=== PATIENT | female | born 1995 | race Caucasian/White ===

== ENCOUNTER 2018-12-05 12:03 | Inpatient (IN) | payer MEDICAID, OTHER ==
[~2018-12-05] VITALS: Ht 154.9 cm; Wt 68.5 kg
[2018-12-05] MEDS ORDERED: CEFTRIAXONE 1 GM INJ IM ONE (14:30)
[2018-12-05] MEDS ORDERED: LIDOCAINE 1% (MPF) 5 ML VIAL INJ ONE (14:30)
[2018-12-05] MEDS ORDERED: SOD CHLORIDE 0.9% 1,000 ML IV STA (14:31)
[2018-12-05] MEDS ORDERED: CEFTRIAXONE 1 GM/50 ML (PMX) 50 ML IVPB ONE (15:00)
--- NOTE | 2018-12-05 17:22 | ERD ---
ER Documentation Chief Complaint Chief Complaint PAINFUL URINATION; BACK PAIN - HPI This is a 23-year-old female with no significant past medical history, currently at approximately 16 weeks gestational age who is presenting with several days of a burning pain with urination, right-sided flank pain and nausea. She has felt feverish at home as well with occasional chills. The patient is concerned that she could have urinary tract infection. She has suprapubic tenderness as well. She does not endorse any changes to bowel movements. She has not had any black or bloody or tarry stools. She denies constipation or diarrhea. She does not endorse any exacerbating or alleviating factors. The patient has had no headache or vision changes. The patient does not endorse neck or back pain. The patient denies lightheadedness or dizziness. The patient has had no chest pain or trouble breathing. The patient has had no focal deficits. The patient has had no weakness or numbness or tingling to the face or extremities. ROS All systems reviewed and are negative except as per history of present illness. Medications Home Meds No Active Prescriptions or Reported Meds Allergies Allergies: Coded Allergies: No Known Allergy (Unverified , 12/05/18) PMhx/Soc Medical and Surgical Hx: pt denies Medical Hx, pt denies Surgical Hx History of Surgery: No Hx Neurological Disorder: No Hx Respiratory Disorders: No Hx Cardiac Disorders: No Hx Psychiatric Problems: No Hx Miscellaneous Medical Probl: No Hx Alcohol Use: No Hx Substance Use: No Hx Tobacco Use: No Smoking Status: Never smoker FmHx Family History: No diabetes Physical Exam Vitals Vital Signs Date Temp Pulse Resp B/P (MAP) Pulse Ox O2 O2 Flow FiO2 Time Delivery Rate 12/05/18 112 20 106/76 100 Room Air 17:00 (86) 12/05/18 117 15 116/77 100 Room Air 15:49 (90) 12/05/18 100.0 123 24 119/79 99 12:14 (92) Physical Exam Const: No apparent distress, well-developed, well-nourished Head: Normocephalic, Atraumatic Eyes: Normal Conjunctiva. Extraocular movements intact. Pupils equal, round and reactive to light ENT: Normal External Ears, Nose and Mouth. Neck: Full range of motion. No meningismus. Resp: Clear to auscultation bilaterally, No wheezes, rales or rhonchi Cardio: Regular rhythm. Tachycardia. No murmurs, rubs or gallops Abd: Soft. Gravid uterus 4-5 cm below the umbilicus. Suprapubic tenderness. Normal bowel sounds Skin: No petechiae or rashes Back: No midline tenderness. No CVA tenderness Ext: No cyanosis, or edema Neur: Awake and alert, oriented 4. Cranial nerves intact. No facial droop. Normal strength, sensation and coordination. Psych: Normal Mood and Affect Result Diagram: 12/05/18 1442 12/05/18 1442 Results 24 hrs Laboratory Tests Test 12/05/18 14:42 12/05/18 14:47 White Blood Count 14.5 10^3/ul Red Blood Count 4.60 10^6/ul Hemoglobin 13.3 g/dl Hematocrit 38.8 % Mean Corpuscular Volume 84.3 fl Mean Corpuscular Hemoglobin 28.9 pg Mean Corpuscular Hemoglobin Concent 34.3 g/dl Red Cell Distribution Width 13.5 % Platelet Count 158 10^3/UL Mean Platelet Volume 11.7 fl Immature Granulocytes % 0.600 % Neutrophils % 88.9 % Lymphocytes % 4.0 % Monocytes % 6.3 % Eosinophils % 0.0 % Basophils % 0.2 % Nucleated Red Blood Cells % 0.0 /100WBC Immature Granulocytes # 0.080 10^3/ul Neutrophils # 12.9 10^3/ul Lymphocytes # 0.6 10^3/ul Monocytes # 0.9 10^3/ul Eosinophils # 0.0 10^3/ul Basophils # 0.0 10^3/ul Nucleated Red Blood Cells # 0.0 10^3/ul Urine Color YELLOW Urine Clarity CLOUDY Urine pH 6.0 Urine Specific [place] 1.012 Urine Ketones 2+ mg/dL Urine Nitrite POSITIVE mg/dL Urine Bilirubin NEGATIVE mg/dL Urine Urobilinogen NEGATIVE mg/dL Urine Leukocyte Esterase 3+ Gracy/ul Urine Microscopic RBC 5 /HPF Urine Microscopic WBC 73 /HPF Urine Squamous Epithelial Cells MODERATE /HPF Urine Bacteria FEW /HPF Urine Mucus MODERATE /HPF Urine Hemoglobin 1+ mg/dL Urine Glucose NEGATIVE mg/dL Urine Total Protein 1+ mg/dl Sodium Level 136 mmol/L Potassium Level 3.5 mmol/L Chloride Level 97 mmol/L Carbon Dioxide Level 22 mmol/L Anion Gap 17 Blood Urea Nitrogen 6 mg/dl Creatinine 0.54 mg/dl Est Glomerular Filtrat Rate mL/min > 60 mL/min Glucose Level 101 mg/dl Lactic Acid Level 1.8 mmol/L Calcium Level 9.7 mg/dl Total Bilirubin 0.4 mg/dl Direct Bilirubin 0.00 mg/dl Indirect Bilirubin 0.4 mg/dl Aspartate Amino Transf (AST/SGOT) 20 IU/L Alanine Aminotransferase (ALT/SGPT) 19 IU/L Alkaline Phosphatase 134 IU/L Total Protein 7.8 g/dl Albumin 4.4 g/dl Globulin 3.40 g/dl Albumin/Globulin Ratio 1.29 POC Venous Lactate 1.9 mmol/L Current Medications Medications Dose Sig/Clau Start Time Status Last (Trade) Ordered Route PRN Stop Time Admin Dose Reason Admin Ceftriaxone 1 gm ONCE ONCE 12/05/18 DC Sodium IM 14:30 (Rocephin) 12/05/18 14:32 Lidocaine 5 ml ONCE ONCE 12/05/18 DC (Xylocaine INJ 14:30 1% (Mpf)) 12/05/18 14:32 Sodium 1,000 ml @ Q1H STAT 12/05/18 DC 12/05/18 Chloride 1,000 mls/hr IV 14:31 14:57 12/05/18 15:30 Ceftriaxone 50 ml @ ONCE ONCE 12/05/18 DC 12/05/18 Sodium 100 mls/hr IVPB 15:00 15:09 12/05/18 15:29 Procedures/MDM MDM The patient's presentation warrants further investigation. Previous medical records, if available, were reviewed. LABS The patient's laboratory testing was obtained and reviewed. No emergent treatment was required unless described below. CBC: Leukocytosis with left shift, concerning for possible infectious etiology. No anemia or thrombocytopenia. CMP: No E/o severe acidosis or alkalosis or renal failure or diabetic ketoacidosis. Elevated alkaline phosphatase, likely reactive, otherwise no evidence of liver disease. Lactate: No E/o severe sepsis Urine: E/o acute infection with hematuria IMAGING Imaging and Radiology interpretation reviewed. Pelvic US FINDINGS: The cervix measures 2.9 cm in length. Gestation: Single live intrauterine gestation. Cardiac activity: 173 beats per minute. Presentation: Vertex. Placenta: Location: Anterior. Appearance: No previa or abruption. MVP = 3.7 cm Measurements: BPD = 3.6 cm, 17 weeks and 0 days HC = 13 cm, 16 weeks and 4 days AC = 10.9 cm, 16 weeks and 5 days FL = 2.2 cm, 16 weeks and 4 days Gestational Age: AUA estimated gestational age: 16 weeks 5 days LMP estimated gestational age: 16 weeks 3 days AUA estimated date of delivery: 05/17/19 The EFW = 164 g, 58.9%ile based on LMP age. The right ovary was not visualized. The left ovary is normal in size and echogenicity and measures 3.2 x 2.0 x 2.6 cm. IMPRESSION: Single live intrauterine gestation of 16 weeks 5 days by ultrasound criteria. Electronically viewed and signed by .Jose Romero MD, MD on 12/05/2018 15:43 TREATMENT/DISPOSITION The patient presents with findings concerning for a urinary tract infection. She does have right-sided flank pain as well, concerning for possible pyelonephritis. The patient is currently at 16 weeks and 5 days gestational age. This infection makes it a high risk , and I feel that the patient requires admission for IV antibiotic administration. The patient was given a dose of Rocephin in the emergency department. The patient has mild microscopic hematuria, but I have decreased suspicion for nephrolithiasis. The patient does not have any evidence of peritonitis. The patient does not have clinical symptoms concerning for mesenteric ischemia or ischemic colitis. The patient does not have right upper quadrant tenderness, and I have low suspicion for gallstones, cholecystitis or biliary colic. The patient does not have any epigastric pain. I have low suspicion for gastritis, PUD or GERD. The patient does not have left upper quadrant tenderness. I have low suspicion for pancreatitis. The patient does not have any right lower quadrant tenderness, or periumbilical tenderness. I have low suspicion for appendicitis. The patient does not have any left lower quadrant tenderness, and I have low suspicion for diverticulosis or diverticulitis. The patient does not have any palpable pulsatile mass or severe abdominal pain radiating to the back. I have low suspicion for aortic aneurysm, dissection or rupture. The patient was tachycardic with a leukocytosis. I was concerned about the possibility of sepsis. A septic workup was completed. SEPSIS NOTE SIRS Criteria: Tachycardia, leukocytosis Infectious source: Pyelonephritis End organ damage indicated by: None SEPSIS MANAGEMENT Time to recognize sepsis: Upon arrival. Time to recognize severe sepsis: No severe sepsis at this time. Time to recognize septic shock: No septic shock at this time. 3 HOUR BUNDLE Blood cultures x 2 before abx: Yes 30 ml/kg NS bolus the patient is not in severe sepsis. She was given a liter of normal saline, but I do not feel the patient requires a full 30 mL/kg bolus of IV fluids. Initial lactate 1.8 Repeat lactate 1.9 SEPTIC SHOCK ASSESSMENT: NO lactic acid > 4.0 NO persistent hypotension CRITICAL CARE Critical care time 35 minutes Emergent fluid management while maintaining close respiratory support. Provision of immediate and broad-spectrum antibiotic therapy. Simultaneous assessment for possible sources in order to direct targeted therapy. Consideration for invasive and chemical support to prevent cardiopulmonary collapse. Critical care time is independent of procedures performed. ADMISSION At this time, I feel that the patient requires admission for further evaluation and management. The patient will be admitted to panel in accordance with the patient's insurance. The patient was accepted by Dr. Mueller at 4:46 PM on December 05, 2018. I spoke with the oncall outside operator, Dr. Nguyen, who will see the patient in the hospital. Disclaimer: Inadvertent spelling and grammatical errors are likely due to EHR/dictation software use and do not reflect on the overall quality of patient care. Note that the electronic time recorded on this note does not necessarily reflect the actual time of the patient encounter. Departure Diagnosis: Primary Impression: Pyelonephritis Additional Impressions: Urinary tract infection Urinary tract infection type: acute cystitis Hematuria presence: with hematuria Qualified Codes: N30.01 - Acute cystitis with hematuria Right flank pain Second trimester Leukocytosis Leukocytosis type: unspecified Qualified Codes: D72.829 - Elevated white blood cell count, unspecified Sepsis Sepsis type: sepsis due to unspecified organism Qualified Codes: A41.9 - Sepsis, unspecified organism Condition: Serious ANTONIO LEWIS MD Dec 05, 2018 17:22
[2018-12-05] MEDS ORDERED: ACETAMINOPHEN 325 MG TAB PO PRN (17:30)
[2018-12-05] MEDS ORDERED: ONDANSETRON 4 MG INJ IV PRN (17:30)
--- NOTE | 2018-12-05 18:45 | HP ---
Date/Time of Note Date/Time of Note DATE: 12/05/18 TIME: 18:42 Assessment/Plan VTE Prophylaxis Pharmacological prophylaxis: NA/contraindicated Pharm contraindication: low risk/ambulating Lines/Catheters IV Catheter Type (from Nrs): Saline Lock Assessment/Plan Hospital Course 1. Sepsis secondary to pyelonephritis Rocephin IV IV fluids Follow-up on cultures 2. Intrauterine gestation Ultrasound shows an intact at 16 weeks and 5 days OB has been consulted Prophylaxis: Ambulation Result Diagram: 12/05/18 1442 12/05/18 1442 Results 24hrs Laboratory Tests Test 12/05/18 14:42 12/05/18 14:47 White Blood Count 14.5 H Red Blood Count 4.60 Hemoglobin 13.3 Hematocrit 38.8 Mean Corpuscular Volume 84.3 Mean Corpuscular Hemoglobin 28.9 L Mean Corpuscular Hemoglobin Concent 34.3 Red Cell Distribution Width 13.5 Platelet Count 158 Mean Platelet Volume 11.7 H Immature Granulocytes % 0.600 H Neutrophils % 88.9 H Lymphocytes % 4.0 L Monocytes % 6.3 Eosinophils % 0.0 Basophils % 0.2 Nucleated Red Blood Cells % 0.0 Immature Granulocytes # 0.080 H Neutrophils # 12.9 H Lymphocytes # 0.6 L Monocytes # 0.9 Eosinophils # 0.0 Basophils # 0.0 Nucleated Red Blood Cells # 0.0 Urine Color YELLOW Urine Clarity CLOUDY A Urine pH 6.0 Urine Specific [place] 1.012 Urine Ketones 2+ H Urine Nitrite POSITIVE A Urine Bilirubin NEGATIVE Urine Urobilinogen NEGATIVE Urine Leukocyte Esterase 3+ H Urine Microscopic RBC 5 Urine Microscopic WBC 73 H Urine Squamous Epithelial Cells MODERATE Urine Bacteria FEW A Urine Mucus MODERATE Urine Hemoglobin 1+ H Urine Glucose NEGATIVE Urine Total Protein 1+ H Sodium Level 136 Potassium Level 3.5 Chloride Level 97 Carbon Dioxide Level 22 Anion Gap 17 H Blood Urea Nitrogen 6 L Creatinine 0.54 Est Glomerular Filtrat Rate mL/min > 60 Glucose Level 101 Lactic Acid Level 1.8 Calcium Level 9.7 Total Bilirubin 0.4 Direct Bilirubin 0.00 Indirect Bilirubin 0.4 Aspartate Amino Transf (AST/SGOT) 20 Alanine Aminotransferase (ALT/SGPT) 19 Alkaline Phosphatase 134 H Total Protein 7.8 Albumin 4.4 Globulin 3.40 H Albumin/Globulin Ratio 1.29 POC Venous Lactate 1.9 HPI/ROS Admit Date/Time Admit Date/Time December 05, 2018 Hx of Present Illness Patient is a 23-year-old female with no prior medical history, patient is at 16 weeks, patient presents with 3 days of fever, dysuria and back pain on the lower right side. Patient has no history of UTI. In the ER patient was found to be septic with a positive UA. Patient has no other complaints this time. ROS Constitutional: chills, febrile Eyes: no complaints ENT: no complaints Respiratory: no complaints Cardiovascular: no complaints Gastrointestinal: no complaints Genitourinary: dysuria Musculoskeletal: back pain Skin: no complaints Neurologic: no complaints Endocrine: no complaints Lymphatic: no complaints Psychological: no complaints, nl mood/affect Immunologic: no complaints PMH/Family/Social Past Medical History Medical History: no pertinent history Medications Current Medications Ondansetron HCl (Zofran Inj) 4 mg BRIDGE ORDER PRN IV NAUSEA/VOMITING; Start 12/05/18 at 17:30; Stop 12/06/18 at 17:29 Acetaminophen (Tylenol Tab) 650 mg ER BRIDGE PRN PO .MILD PAIN 1-3 OR TEMP Last administered on 12/05/18at 18:36; Admin Dose 650 MG; Start 12/05/18 at 17:30; Stop 12/06/18 at 17:29 Coded Allergies: No Known Allergy (Unverified , 12/05/18) Past Surgical History Past Surgical Hx: no surgical history Family History Significant Family History: no pertinent family hx Social History Alcohol Use: rarely Smoking Status: Never smoker Drug Use: none Exam/Review of Systems Vital Signs Vitals Vital Signs Date Temp Pulse Resp B/P (MAP) Pulse Ox O2 O2 Flow FiO2 Time Delivery Rate 12/05/18 102.9 18:36 12/05/18 133 24 116/76 97 Room Air 18:32 (89) Exam Constitutional: alert, oriented Respiratory: clear to auscultation Cardiovascular: regular rate and rhythm Gastrointestinal: soft; No distended Musculoskeletal: nl extremities to inspection ALEXANDRIA BOYD Dec 05, 2018 18:45
[2018-12-05] MEDS ORDERED: NACL 0.9% 3 ML SYG IV SCH (19:00)
[2018-12-05] MEDS ORDERED: HYDROCODONE/APAP (5/325) TAB PO PRN (19:00)
[2018-12-05 19:30] VITALS: BP 98/51; PULSE 117; RESP 20
[2018-12-05] MEDS: morphine 2 MG INJ IV PRN (19:36)
[2018-12-05] MEDS: SOD CHLORIDE 0.9% 1,000 ML IV SCH (19:36)
[2018-12-05 19:53] VITALS: Ht 154.9 cm; Wt 68.5 kg
[2018-12-05 20:00] VITALS: BP 96/51; PULSE 111; RESP 18
[2018-12-06 02:00] VITALS: BP 109/58; PULSE 111; RESP 18
[2018-12-06] MEDS: ACETAMINOPHEN 325 MG TAB PO PRN ×3 (02:08→23:15)
[2018-12-06] MEDS: morphine 2 MG INJ IV PRN (03:22)
--- NOTE | 2018-12-06 05:15 | NUR ---
Shift Summary Patient admitted last night for Pyelonephritis/. Admission completed. Activity ordered bedrest with BRP. Ambulates to bathroom with steady gait, stand-by assist. Dr. Blanco made aware of vital signs. Patient c/o right flank pain, medicated with Morphine and Tylenol as needed with relief. IVF infusing. SCD's placed. Hourly rounding done. Patient's safety maintained. All needs attended to promptly. Will endorse plan of care to oncoming nurse.
[2018-12-06] MEDS: SOD CHLORIDE 0.9% 1,000 ML IV SCH (05:28)
[2018-12-06 08:23] VITALS: BP 133/71; PULSE 78; RESP 17
--- NOTE | 2018-12-06 08:40 | NUR ---
FHT at 140's auscultated via doppler for 2 minutes, + accelerations noted.
[2018-12-06] MEDS: ONDANSETRON 4 MG INJ IV PRN (09:08)
[2018-12-06] MEDS ORDERED: POTASSIUM CHLORIDE (SR) 20 MEQ TAB PO STA (09:11)
[2018-12-06] MEDS: POTASSIUM CHLORIDE 40 MEQ in SOD CHLORIDE 0.9% 1,000 ML IV SCH ×2 (10:55→23:27)
--- NOTE | 2018-12-06 11:03 | PN ---
Date/Time of Note Date/Time of Note DATE: 12/06/18 TIME: 11:02 Assessment/Plan VTE Prophylaxis Risk score (from Nsg)>0 risk: 2 Pharmacological prophylaxis: NA/contraindicated Pharm contraindication: low risk/ambulating Lines/Catheters IV Catheter Type (from Nrsg): Peripheral IV Assessment/Plan Hospital Course 1. Sepsis secondary to pyelonephritis-improved Continue Rocephin IV IV fluids Follow-up on cultures 2. Intrauterine gestation Ultrasound shows an intact at 16 weeks and 5 days OB has been consulted 3. Hypokalemia Replete Prophylaxis: Ambulation DC planning: Anticipate DC home tomorrow Result Diagram: 12/06/18 0459 12/06/18 0459 Results 24hrs Laboratory Tests Test 12/05/18 14:42 12/05/18 14:47 12/06/18 04:59 White Blood Count 14.5 H 11.1 #H Red Blood Count 4.60 3.64 #L Hemoglobin 13.3 10.3 #L Hematocrit 38.8 31.0 #L Mean Corpuscular Volume 84.3 85.2 Mean Corpuscular Hemoglobin 28.9 L 28.3 L Mean Corpuscular Hemoglobin Concent 34.3 33.2 Red Cell Distribution Width 13.5 13.6 Platelet Count 158 130 L Mean Platelet Volume 11.7 H 12.2 H Immature Granulocytes % 0.600 H 0.500 H Neutrophils % 88.9 H 83.6 H Lymphocytes % 4.0 L 6.9 L Monocytes % 6.3 8.7 Eosinophils % 0.0 0.1 Basophils % 0.2 0.2 Nucleated Red Blood Cells % 0.0 0.0 Immature Granulocytes # 0.080 H 0.050 H Neutrophils # 12.9 H 9.3 H Lymphocytes # 0.6 L 0.8 Monocytes # 0.9 1.0 H Eosinophils # 0.0 0.0 Basophils # 0.0 0.0 Nucleated Red Blood Cells # 0.0 0.0 Urine Color YELLOW Urine Clarity CLOUDY A Urine pH 6.0 Urine Specific [place] 1.012 Urine Ketones 2+ H Urine Nitrite POSITIVE A Urine Bilirubin NEGATIVE Urine Urobilinogen NEGATIVE Urine Leukocyte Esterase 3+ H Urine Microscopic RBC 5 Urine Microscopic WBC 73 H Urine Squamous Epithelial Cells MODERATE Urine Bacteria FEW A Urine Mucus MODERATE Urine Hemoglobin 1+ H Urine Glucose NEGATIVE Urine Total Protein 1+ H Sodium Level 136 137 Potassium Level 3.5 3.1 L Chloride Level 97 106 Carbon Dioxide Level 22 18 L Anion Gap 17 H 13 Blood Urea Nitrogen 6 L 5 L Creatinine 0.54 0.49 Est Glomerular Filtrat Rate mL/min > 60 > 60 Glucose Level 101 78 Lactic Acid Level 1.8 Calcium Level 9.7 8.7 Total Bilirubin 0.4 Direct Bilirubin 0.00 Indirect Bilirubin 0.4 Aspartate Amino Transf (AST/SGOT) 20 Alanine Aminotransferase (ALT/SGPT) 19 Alkaline Phosphatase 134 H Total Protein 7.8 Albumin 4.4 Globulin 3.40 H Albumin/Globulin Ratio 1.29 POC Venous Lactate 1.9 Hemoglobin A1c 5.2 Phosphorus Level 3.6 Magnesium Level 2.1 Subjective 24 Hr Interval Summary Constitutional: no complaints Exam/Review of Systems Exam Vitals Vital Signs Date Temp Pulse Resp B/P (MAP) Pulse Ox O2 O2 Flow FiO2 Time Delivery Rate 12/06/18 98.9 78 17 133/71 96 08:23 (91) 12/05/18 Room Air 20:00 Intake and Output 12/05/18 12/05/18 12/06/18 1414:59 22:59 06:59 IntakeIntake Total 1000 ml 2680 ml BalanceBalance 1000 ml 2680 ml Constitutional: alert, oriented Respiratory: clear to auscultation Cardiovascular: regular rate and rhythm Gastrointestinal: soft; No distended Musculoskeletal: nl extremities to inspection Results Results 24hrs Laboratory Tests Test 12/05/18 14:42 12/05/18 14:47 12/06/18 04:59 White Blood Count 14.5 H 11.1 #H Red Blood Count 4.60 3.64 #L Hemoglobin 13.3 10.3 #L Hematocrit 38.8 31.0 #L Mean Corpuscular Volume 84.3 85.2 Mean Corpuscular Hemoglobin 28.9 L 28.3 L Mean Corpuscular Hemoglobin Concent 34.3 33.2 Red Cell Distribution Width 13.5 13.6 Platelet Count 158 130 L Mean Platelet Volume 11.7 H 12.2 H Immature Granulocytes % 0.600 H 0.500 H Neutrophils % 88.9 H 83.6 H Lymphocytes % 4.0 L 6.9 L Monocytes % 6.3 8.7 Eosinophils % 0.0 0.1 Basophils % 0.2 0.2 Nucleated Red Blood Cells % 0.0 0.0 Immature Granulocytes # 0.080 H 0.050 H Neutrophils # 12.9 H 9.3 H Lymphocytes # 0.6 L 0.8 Monocytes # 0.9 1.0 H Eosinophils # 0.0 0.0 Basophils # 0.0 0.0 Nucleated Red Blood Cells # 0.0 0.0 Urine Color YELLOW Urine Clarity CLOUDY A Urine pH 6.0 Urine Specific [place] 1.012 Urine Ketones 2+ H Urine Nitrite POSITIVE A Urine Bilirubin NEGATIVE Urine Urobilinogen NEGATIVE Urine Leukocyte Esterase 3+ H Urine Microscopic RBC 5 Urine Microscopic WBC 73 H Urine Squamous Epithelial Cells MODERATE Urine Bacteria FEW A Urine Mucus MODERATE Urine Hemoglobin 1+ H Urine Glucose NEGATIVE Urine Total Protein 1+ H Sodium Level 136 137 Potassium Level 3.5 3.1 L Chloride Level 97 106 Carbon Dioxide Level 22 18 L Anion Gap 17 H 13 Blood Urea Nitrogen 6 L 5 L Creatinine 0.54 0.49 Est Glomerular Filtrat Rate mL/min > 60 > 60 Glucose Level 101 78 Lactic Acid Level 1.8 Calcium Level 9.7 8.7 Total Bilirubin 0.4 Direct Bilirubin 0.00 Indirect Bilirubin 0.4 Aspartate Amino Transf (AST/SGOT) 20 Alanine Aminotransferase (ALT/SGPT) 19 Alkaline Phosphatase 134 H Total Protein 7.8 Albumin 4.4 Globulin 3.40 H Albumin/Globulin Ratio 1.29 POC Venous Lactate 1.9 Hemoglobin A1c 5.2 Phosphorus Level 3.6 Magnesium Level 2.1 Medications Medication Current Medications Ondansetron HCl (Zofran Inj) 4 mg BRIDGE ORDER PRN IV NAUSEA/VOMITING; Start 12/05/18 at 17:30; Stop 12/06/18 at 17:29 Acetaminophen (Tylenol Tab) 650 mg ER BRIDGE PRN PO .MILD PAIN 1-3 OR TEMP Last administered on 12/05/18at 18:36; Admin Dose 650 MG; Start 12/05/18 at 17:30; Stop 12/06/18 at 17:29 IV Flush (NS 3 ml) 3 ml PER PROTOCOL IV ; Start 12/05/18 at 19:00 Ondansetron HCl (Zofran Inj) 4 mg Q6H PRN IV NAUSEA/VOMITING Last administered on 12/06/18at 09:08; Admin Dose 4 MG; Start 12/05/18 at 19:00 Acetaminophen (Tylenol Tab) 650 mg Q6H PRN PO .PAIN 1-3 OR TEMP Last administered on 12/06/18 02:08; Admin Dose 650 MG; Start 12/05/18 at 19:00 Acetaminophen/ Hydrocodone Bitart ([place] (5/325)) 1 tab Q6H PRN PO .MOD PAIN 4- 6; Start 12/05/18 at 19:00 Morphine Sulfate (morphine) 2 mg Q4H PRN IV .SEVERE PAIN 7-10 Last administered on 12/06/18at 03:22; Admin Dose 2 MG; Start 12/05/18 at 19:00 Ceftriaxone Sodium 50 ml @ 100 mls/hr Q24H IVPB ; Start 12/06/18 at 15:00 Potassium Chloride 40 meq/ Sodium Chloride 1,000 ml @ 100 mls/hr Q10H IV Last administered on 12/06/18at 10:55; Admin Dose 100 MLS/HR; Start 12/06/18 at 09:30 ALEXANDRIA BOYD Dec 06, 2018 11:03
[2018-12-06] MEDS: CEFTRIAXONE 1 GM/50 ML (PMX) 50 ML IVPB SCH (15:16)
[2018-12-06 15:20] VITALS: BP 98/53; PULSE 110; RESP 18
[2018-12-06 20:05] VITALS: BP 99/56; PULSE 94; RESP 20
[2018-12-07] VITALS: BP 118/67; PULSE 108; RESP 18
[2018-12-07] MEDS: ONDANSETRON 4 MG INJ IV PRN (00:37)
[2018-12-07] MEDS: morphine 2 MG INJ IV PRN (00:37)
[2018-12-07 01:50] VITALS: BP 100/56; PULSE 86; RESP 18
--- NOTE | 2018-12-07 02:46 | NUR ---
FHT checked by Shahida Bates RN - 138 /m on right lower quadrant.
--- NOTE | 2018-12-07 02:46 | NUR ---
FHT DONE AT THIS TIME
[2018-12-07] MEDS: POTASSIUM CHLORIDE 40 MEQ in SOD CHLORIDE 0.9% 1,000 ML IV SCH (05:30)
--- NOTE | 2018-12-07 06:30 | NUR ---
EOSS PATIENT WITH 100.2 FEVER X1 AND GIVEN TYLENOL, ICE PACKS ALSO PROVIDED. FAMILY AT BEDSIDE. WAS ABLE TO BET L/D NURSE TO DO FHT. PATIENT HAD EPISODE OF EMESIS. NAUSEA MANAGED WITH ZOFRAN. EFFECTIVE. PATIENT MEDICATED FOR PAIN PRN. ASSISTED TO BATHROOM PRN. BED ALARM ACTIVATED. NO S/S OF DISTRESS NOTED AT THIS TIME. CALL LIGHT IN REACH.
[2018-12-07 07:37] VITALS: BP 112/61; PULSE 77; RESP 20
[2018-12-07] MEDS ORDERED: CEPH500C PO (08:43)
--- NOTE | 2018-12-07 08:44 | PDOCDIS ---
Discharge Instructions CONDITION [id number] Patient Condition: [id number] Good HOME CARE INSTRUCTIONS: [id number] Diet Instructions: [id number] Regular ACTIVITY: [id number] Activity Restrictions: [id number] No Restrictions FOLLOW UP/APPOINTMENTS Follow-up Plan FOLLOW UP WITH YOUR PCP AND OB IN 1-2 WEEKS ALEXANDRIA BOYD Dec 07, 2018 08:44
[2018-12-07] MEDS: CEFTRIAXONE 1 GM/50 ML (PMX) 50 ML IVPB SCH (10:06)
--- NOTE | 2018-12-07 10:12 | DS ---
Date/Time of Note Date/Time of Note DATE: 12/07/18 TIME: 10:09 Discharge Summary Admission/Discharge Info Admit Date/Time Dec 05, 2018 at 17:22 Discharge Date/Time December 07, 2018 Discharge Diagnosis 1. Sepsis secondary to pyelonephritis-resolved Status post Rocephin IV Status post IV fluids Urine culture shows E. coli, DC with Keflex 2. Intrauterine gestation Ultrasound shows an intact at 16 weeks and 5 days OB was consulted, follow-up with outpatient OB 3. Hypokalemia Repleted Patient Condition: Good Hospital Course Patient is a 23-year-old female with no prior medical history, patient is at 16 weeks, patient presents with 3 days of fever, dysuria and back pain on the lower right side. Patient was diagnosed with sepsis secondary to pyelonephritis, patient was treated with empiric Rocephin and IV fluids with resolution of sepsis. Urine culture came back positive for E. coli that was sensitive to multiple antibiotics, patient was stable for DC with p.o. antibiotic and on the day of discharge patient's vitals, labs and physical exam are stable. Of note OB was consulted in the ER, patient to follow-up with outpatient OB. Home Meds Active Scripts Cephalexin* (Cephalexin*) 500 Mg Capsule, 500 MG PO BID for 5 Days, #10 CAP Prov:ALEXANDRIA BOYD 12/07/18 Follow-up Plan FOLLOW UP WITH YOUR PCP AND OB IN 1-2 WEEKS Primary Care Provider Care Physician No Primary Time spent on discharge: > 30 minutes ALEXANDRIA BOYD Dec 07, 2018 10:12
--- NOTE | 2018-12-07 11:50 | NUR ---
No acute distress during the day. No c/o pain at present time. IV Rocephin given.Discharge instructions given to patient regarding activities, diet, medications and danger s/s to report to MD. Patient and patients verbalized understanding of teaching and patient been discharged to family care by wheelchair.Prescription for antibiotics given and explained.
== END 2018-12-07 11:55 | disposition home or self-care (01) | DRG 832 ==
LOC: FTE 12:03 → 2NE 17:22
PROVIDERS: ADMIT Internal Medicine; ATTEND Internal Medicine
DX: O98.812 Other maternal infectious and parasitic diseases complicating pregnancy, second trimester (principal); O23.02 Infections of kidney in pregnancy, second trimester; B96.20 Unspecified Escherichia coli [E. coli] as the cause of diseases classified elsewhere; E87.6 Hypokalemia; Z3A.16 16 weeks gestation of pregnancy
CPT/HCPCS: 36415; 76805; 80048; 80053; 81001; 83036; 83605; 83735; 84100; 85025; 87040; 87086; 96361; 96374; J0696; J2270; J2405; J3480; J7030

== ENCOUNTER 2018-12-26 20:53 | Inpatient (IN) | payer MEDICAID ==
[~2018-12-26] VITALS: Ht 147.3 cm; Wt 66.4 kg
[~2018-12-26 20:53] MED LIST: CEPH500C PO
[2018-12-26] MEDS ORDERED: SODIUM CHLORIDE 0.9% 1L BAG IV* STA (22:13)
[2018-12-26] MEDS ORDERED: ACETAMINOPHEN 325 MG TAB PO ONE (22:30)
--- NOTE | 2018-12-26 23:04 | ERD ---
ER Documentation Chief Complaint Chief Complaint FEVER, ST X'S 4 DAYS HPI 23-year-old female , history of pyelonephritis presents to the ED complaining of a 4-day history of fevers and body aches. Nonspecific URI symptoms including cough and odynophagia but also complaining of dysuria and right flank pain. No abdominal pain, nausea or vomiting. No vaginal discharge or bleeding. No headache or neck pain. No skin rash. No ill contacts or recent travel. Uncertain last menstrual period with documented viable 16-week IUP on ultrasound 12/05/2018. ROS All systems reviewed and are negative except as per history of present illness. Medications Home Meds Discontinued Scripts Cephalexin* (Cephalexin*) 500 Mg Capsule, 500 MG PO BID for 5 Days, #10 CAP Prov:ALEXANDRIA BOYD 12/07/18 Allergies Allergies: Coded Allergies: No Known Allergy (Unverified , 12/27/18) PMhx/Soc Reviewed in chart. As per HPI. History of Surgery: No Anesthesia Reaction: No Hx Neurological Disorder: No Hx Respiratory Disorders: No Hx Cardiac Disorders: No Hx Psychiatric Problems: No Hx Miscellaneous Medical Probl: No Hx Alcohol Use: No Hx Substance Use: No Hx Tobacco Use: No Smoking Status: Never smoker FmHx No family history relevant to presenting complaint Physical Exam Vitals Vital Signs Date Temp Pulse Resp B/P (MAP) Pulse Ox O2 O2 Flow FiO2 Time Delivery Rate 12/26/18 100.4 22:34 12/26/18 102.0 138 18 142/77 96 21:16 (98) Physical Exam Const: Moderate distress Head: Atraumatic Eyes: Normal Conjunctiva ENT: Normal External Ears, Nose and Mouth. Pharynx is slightly erythematous without exudate. Neck: Full range of motion. No meningismus. No lymphadenopathy or tenderness. Resp: Clear to auscultation bilaterally Cardio: Tachycardic. Regular rate and rhythm, no murmurs Abd: Soft, non tender. Gravid. No rebound or guarding. Normal bowel sounds Skin: No petechiae or rashes Back: Right CVA tenderness. Ext: No cyanosis, or edema Neur: Awake and alert Psych: Normal Mood and Affect Result Diagram: 12/29/18 0434 12/29/18433 Results 24 hrs Laboratory Tests Test 12/26/18 22:30 12/26/18 22:35 12/26/18 22:36 White Blood Count 16.8 10^3/ul Red Blood Count 4.41 10^6/ul Hemoglobin 12.4 g/dl Hematocrit 36.9 % Mean Corpuscular Volume 83.7 fl Mean Corpuscular Hemoglobin 28.1 pg Mean Corpuscular 33.6 g/dl Hemoglobin Concent Red Cell Distribution Width 13.9 % Platelet Count 167 10^3/UL Mean Platelet Volume 11.7 fl Immature Granulocytes % 0.700 % Neutrophils % 87.0 % Lymphocytes % 4.9 % Monocytes % 7.2 % Eosinophils % 0.0 % Basophils % 0.2 % Nucleated Red Blood Cells % 0.0 /100WBC Immature Granulocytes # 0.120 10^3/ul Neutrophils # 14.6 10^3/ul Lymphocytes # 0.8 10^3/ul Monocytes # 1.2 10^3/ul Eosinophils # 0.0 10^3/ul Basophils # 0.0 10^3/ul Nucleated Red Blood Cells # 0.0 10^3/ul Sodium Level 134 mmol/L Potassium Level 3.4 mmol/L Chloride Level 96 mmol/L Carbon Dioxide Level 24 mmol/L Anion Gap 14 Blood Urea Nitrogen 5 mg/dl Creatinine 0.68 mg/dl Est Glomerular Filtrat > 60 mL/min Rate mL/min Glucose Level 152 mg/dl Calcium Level 9.6 mg/dl Total Bilirubin 0.6 mg/dl Direct Bilirubin 0.00 mg/dl Indirect Bilirubin 0.6 mg/dl Aspartate Amino Transf (AST/SGOT) 25 IU/L Alanine 23 IU/L Aminotransferase (ALT/SGPT) Alkaline Phosphatase 167 IU/L Total Protein 8.5 g/dl Albumin 4.4 g/dl Globulin 4.10 g/dl Albumin/Globulin Ratio 1.07 Urine Color FREDDIE Urine Clarity CLOUDY Urine pH 6.0 Urine Specific [place] 1.005 Urine Ketones NEGATIVE mg/dL Urine Nitrite NEGATIVE mg/dL Urine Bilirubin NEGATIVE mg/dL Urine Urobilinogen 2+ mg/dL Urine Leukocyte Esterase 3+ Gracy/ul Urine Microscopic RBC 5 /HPF Urine Microscopic WBC > 182 /HPF Urine Squamous Epithelial Cells FEW /HPF Urine Bacteria FEW /HPF Urine Hemoglobin 1+ mg/dL Urine Glucose NEGATIVE mg/dL Urine Total Protein 1+ mg/dl POC Beta HCG, Qualitative POSITIVE POC Venous Lactate 1.8 mmol/L Current Medications Medications Dose Sig/Clau Start Time Status Last (Trade) Ordered Route PRN Stop Time Admin Dose Reason Admin Sodium 1,990 ml BOLUS OVER 2 12/26/18 DC 12/26/18 Chloride HOURS STAT 22:13 12/26/18 22:35 (NS) IV* 22:17 650 mg ONCE ONCE 12/26/18 DC 12/26/18 Acetaminophen PO 22:30 12/26/18 22:34 (Tylenol 22:31 Tab) Ceftriaxone 50 ml @ ONCE ONCE 12/26/18 DC 12/26/18 Sodium 100 mls/hr IVPB 23:30 12/26/18 23:07 23:59 Sodium 1,000 ml @ Q10H IV 12/27/18 DC 12/27/18 Chloride 100 mls/hr 00:16 12/28/18 15:49 00:15 Procedures/MDM DOCUMENTS REVIEWED: ED nurse, prior records MEDICAL DECISION MAKIN-year-old female , history of pyelonephritis presents to the ED complaining of a 4-day history of fevers, body aches, dysuria, right flank pain and nonspecific URI symptoms. CBC significant for leukocytosis without anemia or thrombocytopenia. Chemistry reveals mild hyponatremia and hypokalemia but no renal insufficiency or hyperglycemia. Urinalysis significant for pyuria and a culture is pending. Multiple criteria for systemic inflammatory response syndrome with sepsis secondary to pyelonephritis. Initial lactate is 1.8 and repeat is 1.1. No hypotension or criteria for severe sepsis or septic shock. Within 3 hours of recognition NS 30cc/kg intravenous fluids and antibiotics after cultures administered based on patient's prior urine culture which grew out E. coli sensitive to ceftriaxone. Patient also has nonspecific URI symptoms but influenza is negative. Ultrasound from 3 weeks ago revealed a 16-week IUP which makes the patient 19 weeks today and repeat imaging is deferred. Patient's infectious symptoms have not stabilized and the patient is at risk of rapid decompensation. The patient will be admitted for careful hydration, antibiotic therapy, infectious source control and OB consult. Admit to [facility] for further evaluation and management. PATIENT CARE TRANSITIONED: Time: 12:12, Dr. Montano. Counseled patient and family regarding diagnosis, diagnostic results and plan for admission. Admit MDM: Severe Sepsis criteria: Infectious source: [] End organ damage indicated by: [] Lactate > 2.0 mmol/L Hypotension (SBP < 90 or >40 mmHG drop or MAP < 65) Acute Resp Failure (sat < 92% w/o oxygen) Public Works Technician > 2.0 INR > 1.5 Plt < 100 Bili > 2 Sepsis Management: Time of recognition of severe sepsis: [] Within 3 hours of recognition: Blood cultures x 2 before broad-spectrum antibiotics: []Yes 30 ml/kg NS bolus []Completed Initial lactate [] Repeat lactate []Not indicated as initial lactate < 2.0 Septic Shock Assessment: Any lactic acid > 4.0 []No Persistent hypotension (SBP < 90 or 40 mmHg drop, MAP < 65) despite 30 mL/kg IV fluid bolus []No A focused sepsis perfusion/reperfusion reassessment examination was performed post 30ml/kg bolus @ []: Temp [], BP [], HR [], RR[], Pox [] Persistent Hypotension Treatment: Comfort care []No Hypotension caused by: pt. baseline, med-induced, erroneous value, condition other than infection []No Refusal by patient/decision maker for: blood draw, IVF, Antibiotics, Pressors []No Central line [] Vasopressor started []Norepinehrine I considered further perfusion assessment with CVP measurement, SCVO2, bedside ultrasound volume assessment, passive leg raise, trial of further fluid bolus and proceeded with []. Accepting Care Team Current data and ongoing care discussed. Time: [] Admitting Physician: [] Welder Apprentice Gas(s): Outstanding Data: []None Critical Care Time: [] minutes Treatments/Evaluations: Close monitoring and treatment of unstable vital signs, cardiorespiratory, and neurologic status, while maintaining tight balance of fluid, respiratory, and cardiac interventions. This includes the administration of emergency fluid management while maintaining close respiratory support as well as the provision of immediate and broad-spectrum antibiotic therapy, while performing a simultaneous assessment for possible sources in order to direct ta rgeted therapy. This time includes discussing the case with the patient and the patient's family. This time also includes the consideration for invasive and chemical support to prevent cardiopulmonary collapse. This time does not include all procedures stated elsewhere in this record. This time also includes reviewing old records, labs and radiological studies. This time includes examining and re-examining the patient. Additionally, this time also includes arranging care with admitting and consulting physicians. Departure Diagnosis: Primary Impression: Fever Fever type: unspecified Qualified Codes: R50.9 - Fever, unspecified Additional Impressions: Acute pyelonephritis Systemic inflammatory response syndrome Sepsis Sepsis type: sepsis due to unspecified organism Qualified Codes: A41.9 - Sepsis, unspecified organism Weeks of gestation: 19 weeks Qualified Codes: Z3A.19 - 19 weeks gestation of Viral URI with cough Condition: Serious JENELLE BUTT MD Dec 26, 2018 23:04
[2018-12-26] MEDS ORDERED: CEFTRIAXONE 1 GM/50 ML (PMX) 50 ML IVPB ONE (23:30)
[2018-12-27] MEDS ORDERED: DOCUSATE SODIUM 100 MG CAP PO PRN (00:30)
[2018-12-27] MEDS ORDERED: ONDANSETRON 4 MG INJ IV PRN (00:30)
[2018-12-27] MEDS ORDERED: ACETAMINOPHEN 325 MG TAB PO PRN (00:30)
[2018-12-27] MEDS ORDERED: NACL 0.9% 3 ML SYG IV SCH (00:30)
[2018-12-27] MEDS ORDERED: BISACODYL (EC) 5 MG TAB PO PRN (00:30)
[2018-12-27 01:09] VITALS: Ht 147.3 cm; Wt 66.4 kg
[2018-12-27] MEDS: SOD CHLORIDE 0.9% 1,000 ML IV SCH ×4 (01:33→20:16)
[2018-12-27 02:00] VITALS: BP 117/70; PULSE 102; RESP 18
--- NOTE | 2018-12-27 02:30 | HP ---
Date/Time of Note Date/Time of Note DATE: 12/27/18 TIME: 02:29 Assessment/Plan VTE Prophylaxis SCD applied (from Nsg): Yes Pharmacological prophylaxis: NA/contraindicated Pharm contraindication: low risk/ambulating Lines/Catheters IV Catheter Type (from Nrsg): Peripheral IV Urinary Cath still in place: No Assessment/Plan Hospital Course This is a 23-year-old female being admitted to the [facility] floor for: #1 sepsis: Secondary to pyelonephritis and/and URI. Current time will treat with ceftriaxone and azithromycin. Await culture results. Previous urine culture was positive for E. coli which was sensitive to multiple antibiotics. #2 Pyelonephritis: Await urine cultures, ceftriaxone 1 g IV every 24 hours #3 URI: Bacterial versus viral: Productive cough. Given the fact that she is will cover for bacterial infection with ceftriaxone and azithromycin course. #4 intrauterine : We will obtain obstetric ultrasound, heart monitoring, consider OB consultation, vitamins #5 DVT GI prophylaxis: SCDs, no GI prophylaxis indicated Further treatment strategy will be implemented as per the clinical course. Result Diagram: 12/26/18222912/26/182229 Results 24hrs Laboratory Tests Test 12/26/18 22:30 12/26/18 22:35 12/26/18 22:36 12/27/18 00:57 White Blood Count 16.8 #H Red Blood Count 4.41 Hemoglobin 12.4 Hematocrit 36.9 L Mean Corpuscular Volume 83.7 Mean Corpuscular 28.1 L Hemoglobin Mean Corpuscular 33.6 Hemoglobin Concent Red Cell Distribution 13.9 Width Platelet Count 167 Mean Platelet Volume 11.7 H Immature Granulocytes % 0.700 H Neutrophils % 87.0 H Lymphocytes % 4.9 L Monocytes % 7.2 Eosinophils % 0.0 Basophils % 0.2 Nucleated Red Blood 0.0 Cells % Immature Granulocytes # 0.120 H Neutrophils # 14.6 H Lymphocytes # 0.8 Monocytes # 1.2 H Eosinophils # 0.0 Basophils # 0.0 Nucleated Red Blood 0.0 Cells # Sodium Level 134 L Potassium Level 3.4 L Chloride Level 96 L Carbon Dioxide Level 24 Anion Gap 14 H Blood Urea Nitrogen 5 L Creatinine 0.68 Est Glomerular Filtrat > 60 Rate mL/min Glucose Level 152 Calcium Level 9.6 Total Bilirubin 0.6 Direct Bilirubin 0.00 Indirect Bilirubin 0.6 Aspartate Amino 25 Transf (AST/SGOT) Alanine 23 Aminotransferase (ALT/SG PT) Alkaline Phosphatase 167 H Total Protein 8.5 H Albumin 4.4 Globulin 4.10 H Albumin/Globulin Ratio 1.07 Urine Color FREDDIE Urine Clarity CLOUDY A Urine pH 6.0 Urine Specific [place] 1.005 Urine Ketones NEGATIVE Urine Nitrite NEGATIVE Urine Bilirubin NEGATIVE Urine Urobilinogen 2+ H Urine Leukocyte Esterase 3+ H Urine Microscopic RBC 5 Urine Microscopic WBC > 182 H Urine Squamous FEW Epithelial Cells Urine Bacteria FEW A Urine Hemoglobin 1+ H Urine Glucose NEGATIVE Urine Total Protein 1+ H POC Beta HCG, POSITIVE H Qualitative POC Venous Lactate 1.8 1.1 HPI/ROS Admit Date/Time Admit Date/Time Dec 27, 2018 at 00:20 Hx of Present Illness Chief complaint: Fever times 4 days and body aches This is a 23-year-old female , history of pyelonephritis presents to the ED complaining of a 4-day history of fevers and body aches. Nonspecific URI symptoms including cough and sore throat but also complaining of dysuria and right flank pain. No abdominal pain, nausea or vomiting. No vaginal discharge or bleeding. No headache or neck pain. No skin rash. No ill contacts or recent travel. Upon review of her previous admission on 12/05 she had a obstetric ultrasound done did show at approximately 16 weeks. She does have regular follow-up at a clinic for her ob. Allergies: NKDA Medications: See Dec Const: As per HPI Eyes : No pain discharge or redness or change in visual acuity ENT: No pain, sore throat, congestion, congestion, dysphagia or discharge Respiratory: As per HPI Cardiovascular: No chest pain, palpitation, PND, or edema GI : no change in appetite, abdominal pain, nausea, vomiting, diarrhea, constipation, or change in the color his stool Genitourinary: As per HPI Musculoskeletal: No joint pain, back pain, neck pain, restricted range of motion in neck or joints Skin: No rash, bruising or hives Neuro: No headache, dizziness, syncope, seizure, focal weakness Endocrine: No polyuria, polydipsia, temperature intolerance Psych: No hallucination, depression, anxiety or suicidal ideation PMH/Family/Social Past Medical History Pyelonephritis, intrauterine Medications Current Medications Sodium Chloride 1,000 ml @ 100 mls/hr Q10H IV Last administered on 12/27/18at 01:33; Admin Dose 100 MLS/HR; Start 12/27/18 at 00:16; Stop 12/28/18 at 00:15 IV Flush (NS 3 ml) 3 ml PER PROTOCOL IV ; Start 12/27/18 at 00:30 Ondansetron HCl (Zofran Inj) 4 mg Q6H PRN IV NAUSEA/VOMITING; Start 12/27/18 at 00:30 Acetaminophen (Tylenol Tab) 650 mg Q6H PRN PO .PAIN 1-3 OR TEMP; Start 12/27/18 at 00:30 Docusate Sodium (Colace) 100 mg Q12H PRN PO .CONSTIPATION; Start 12/27/18 at 00:30 Bisacodyl (Dulcolax) 5 mg DAILY PRN PO .CONSTIPATION; Start 12/27/18 at 00:30 Ceftriaxone Sodium 50 ml @ 100 mls/hr Q24H IVPB ; Start 12/27/18 at 23:00 Coded Allergies: No Known Allergy (Unverified , 12/27/18) Past Surgical History Past Surgical Hx: no surgical history Family History Significant Family History: no pertinent family hx Social History Alcohol Use: rarely Smoking Status: Never smoker Drug Use: none Exam/Review of Systems Vital Signs Vitals Vital Signs Date Temp Pulse Resp B/P (MAP) Pulse Ox O2 O2 Flow FiO2 Time Delivery Rate 12/27/18 97.5 102 18 117/70 97 Room Air 02:00 (86) Exam Exam General: Patient is currently lying in bed, she does appear ill HEENT: Atraumatic, normocephalic. The pupils are equal, round and reactive. Extraocular motor are intact Neck: Supple with full range of motion. No rigidity or meningismus Chest: Nontender Lungs: Clear to auscultation bilaterally no crackles rales or wheezing, cough Heart: Normal S1-S2, Regular rhythm and rate. No murmur, S3, or S4 Abdomen: Soft , nontender, nondistended , bowel sounds are present. No guarding no rebound tenderness , No masses or organomegaly. No costovertebral temporal angle mass Extremities: Normal to inspection, no edema no cyanosis Genitourinary: Right-sided flank tenderness to palpation Neurologic: Normal mental status, speech normal, cranial nerves II through XII are intact, motor and sensory are intact, no focal weakness GUIDO PACHECO Dec 27, 2018 02:29
[2018-12-27] MEDS ORDERED: AZITHROMYCIN 250 MG TAB PO ONE (07:30)
[2018-12-27 07:37] VITALS: BP 107/58; PULSE 109; RESP 26
[2018-12-27] MEDS: POTASSIUM CHLORIDE (SR) 20 MEQ TAB PO SCH ×2 (08:49→21:09)
[2018-12-27 14:13] VITALS: BP 110/60; PULSE 115; RESP 24
--- NOTE | 2018-12-27 17:14 | PN ---
Date/Time of Note Date/Time of Note DATE: 12/27/18 TIME: 17:09 Assessment/Plan VTE Prophylaxis Risk score (from Ns)>0 risk: 1 SCD applied (from Ns): Yes Pharmacological prophylaxis: NA/contraindicated Pharm contraindication: low risk/ambulating Lines/Catheters IV Catheter Type (from Nrsg): Peripheral IV Urinary Cath still in place: No Assessment/Plan Assessment/Plan 23 yo woman at 18 weeks gestation admitted for URI and pyelonephritis # sepsis: - Secondary to pyelonephritis and/and URI. - Current time will treat with ceftriaxone and azithromycin. # Pyelonephritis: - Urine culture growing E Coli - Pending sensitivities - Ceftriaxone q24h # URI: - Bacterial versus viral: Productive cough. # intrauterine : We will obtain obstetric ultrasound, heart monitoring, vitamins # DVT GI prophylaxis: SCDs, no GI prophylaxis indicated Result Diagram: 12/27/1852512/27/18 05 Subjective 24 Hr Interval Summary Free Text/Dictation No acute overnight events. Patient reports bone aches have resolved, now just cough. Continues to have R flank pain. Exam/Review of Systems Exam Vitals Vital Signs Date Temp Pulse Resp B/P (MAP) Pulse Ox O2 O2 Flow FiO2 Time Delivery Rate 12/27/18 99.7 115 24 110/60 100 Room Air 14:13 (77) Intake and Output 12/26/18 12/26/18 12/27/18 1414:59 22:59 06:59 IntakeIntake Total 450 ml BalanceBalance 450 ml Exam General: Well appearing woman sitting up in bed. HEENT: Atraumatic, normocephalic. The pupils are equal, round and reactive. Extraocular motor are intact Neck: Supple with full range of motion. No rigidity or meningismus Chest: Nontender Lungs: Clear to auscultation bilaterally no crackles rales or wheezing, cough Heart: Normal S1-S2, Regular rhythm and rate. No murmur, S3, or S4 Abdomen: Soft , nontender, nondistended , bowel sounds are present. Back: She does have R CVA tenderness. Extremities: Normal to inspection, no edema no cyanosis Results Results 24hrs Laboratory Tests Test 12/26/18 22:30 12/26/18 22:35 12/26/18 22:36 12/27/18 00:57 White Blood Count 16.8 #H Red Blood Count 4.41 Hemoglobin 12.4 Hematocrit 36.9 L Mean Corpuscular Volume 83.7 Mean Corpuscular 28.1 L Hemoglobin Mean Corpuscular 33.6 Hemoglobin Concent Red Cell Distribution 13.9 Width Platelet Count 167 Mean Platelet Volume 11.7 H Immature Granulocytes % 0.700 H Neutrophils % 87.0 H Lymphocytes % 4.9 L Monocytes % 7.2 Eosinophils % 0.0 Basophils % 0.2 Nucleated Red Blood 0.0 Cells % Immature Granulocytes # 0.120 H Neutrophils # 14.6 H Lymphocytes # 0.8 Monocytes # 1.2 H Eosinophils # 0.0 Basophils # 0.0 Nucleated Red Blood 0.0 Cells # Sodium Level 134 L Potassium Level 3.4 L Chloride Level 96 L Carbon Dioxide Level 24 Anion Gap 14 H Blood Urea Nitrogen 5 L Creatinine 0.68 Est Glomerular Filtrat > 60 Rate mL/min Glucose Level 152 Calcium Level 9.6 Total Bilirubin 0.6 Direct Bilirubin 0.00 Indirect Bilirubin 0.6 Aspartate Amino 25 Transf (AST/SGOT) Alanine 23 Aminotransferase (ALT/SG PT) Alkaline Phosphatase 167 H Total Protein 8.5 H Albumin 4.4 Globulin 4.10 H Albumin/Globulin Ratio 1.07 Urine Color FREDDIE Urine Clarity CLOUDY A Urine pH 6.0 Urine Specific [place] 1.005 Urine Ketones NEGATIVE Urine Nitrite NEGATIVE Urine Bilirubin NEGATIVE Urine Urobilinogen 2+ H Urine Leukocyte Esterase 3+ H Urine Microscopic RBC 5 Urine Microscopic WBC > 182 H Urine Squamous FEW Epithelial Cells Urine Bacteria FEW A Urine Hemoglobin 1+ H Urine Glucose NEGATIVE Urine Total Protein 1+ H POC Beta HCG, POSITIVE H Qualitative POC Venous Lactate 1.8 1.1 Test 12/27/18 01:57 12/27/18 05:26 Lactic Acid Level 1.2 White Blood Count 15.5 H Red Blood Count 3.33 #L Hemoglobin 9.4 #L Hematocrit 27.4 #L Mean Corpuscular Volume 82.3 Mean Corpuscular 28.2 L Hemoglobin Mean Corpuscular 34.3 Hemoglobin Concent Red Cell Distribution 14.0 Width Platelet Count 138 L Mean Platelet Volume 12.1 H Immature Granulocytes % 0.500 H Neutrophils % 88.3 H Lymphocytes % 3.0 L Monocytes % 8.1 Eosinophils % 0.0 Basophils % 0.1 Nucleated Red Blood 0.0 Cells % Immature Granulocytes # 0.070 H Neutrophils # 13.7 H Lymphocytes # 0.5 L Monocytes # 1.3 H Eosinophils # 0.0 Basophils # 0.0 Nucleated Red Blood 0.0 Cells # Sodium Level 137 Potassium Level 3.2 L Chloride Level 104 Carbon Dioxide Level 21 Anion Gap 12 Blood Urea Nitrogen 4 L Creatinine 0.49 Est Glomerular Filtrat > 60 Rate mL/min Glucose Level 132 Calcium Level 8.3 L Total Bilirubin 0.4 Direct Bilirubin 0.00 Indirect Bilirubin 0.4 Aspartate Amino 19 Transf (AST/SGOT) Alanine 27 Aminotransferase (ALT/SG PT) Alkaline Phosphatase 108 Total Protein 5.4 #L Albumin 2.9 #L Globulin 2.50 Albumin/Globulin Ratio 1.16 Medications Medication Current Medications Sodium Chloride 1,000 ml @ 100 mls/hr Q10H IV Last administered on 12/27/18 15:49; Admin Dose 100 MLS/HR; Start 12/27/18 at 00:16; Stop 12/28/18 at 00:15 IV Flush (NS 3 ml) 3 ml PER PROTOCOL IV ; Start 12/27/18 at 00:30 Ondansetron HCl (Zofran Inj) 4 mg Q6H PRN IV NAUSEA/VOMITING; Start 12/27/18 at 00:30 Acetaminophen (Tylenol Tab) 650 mg Q6H PRN PO .PAIN 1-3 OR TEMP Last administered on 12/27/18 03:26; Admin Dose 650 MG; Start 12/27/18 at 00:30 Docusate Sodium (Colace) 100 mg Q12H PRN PO .CONSTIPATION; Start 12/27/18 at 00:30 Bisacodyl (Dulcolax) 5 mg DAILY PRN PO .CONSTIPATION Last administered on 12/27/18at 03:26; Admin Dose 5 MG; Start 12/27/18 at 00:30 Ceftriaxone Sodium 50 ml @ 100 mls/hr Q24H IVPB ; Start 12/27/18 at 23:00 Azithromycin (Zithromax) 250 mg DAILY PO ; Start 12/28/18 at 09:00; Stop 01/01/19 at 08:59 Potassium Chloride (Klor-Con 20) 40 meq BID PO Last administered on 12/27/18 08:49; Admin Dose 40 MEQ; Start 12/27/18 at 09:00; Stop 12/27/18 at 21:01 JOHN BYNUM MD Dec 27, 2018 17:14
[2018-12-27 20:00] VITALS: BP 104/59; PULSE 102; RESP 16
[2018-12-27] MEDS ORDERED: CEFTRIAXONE 1 GM/50 ML (PMX) 50 ML IVPB SCH (23:00)
[2018-12-28 01:40] VITALS: BP 107/61; PULSE 103; RESP 16; RESP 18
[2018-12-28 07:31] VITALS: BP 92/63; PULSE 95; RESP 20
[2018-12-28] MEDS: AZITHROMYCIN 250 MG TAB PO SCH (09:09)
[2018-12-28] MEDS ORDERED: GUAIFENESIN 20 MG/ML 5ML CUP PO PRN (11:30)
[2018-12-28] MEDS: PRENATAL VITAMIN PO SCH (12:27)
[2018-12-28 14:32] VITALS: BP 109/63; PULSE 95; RESP 16
--- NOTE | 2018-12-28 16:38 | PN ---
Date/Time of Note Date/Time of Note DATE: 12/28/18 TIME: 16:35 Assessment/Plan VTE Prophylaxis Risk score (from Ns)>0 risk: 2 SCD applied (from Ns): No SCD contraindicated: low risk/ambulating Pharmacological prophylaxis: NA/contraindicated Pharm contraindication: low risk/ambulating Lines/Catheters IV [facility]ter [facility]from [facility] Saline Lock Urinary Cath still in place: No Assessment/Plan Assessment/Plan 23 yo woman at 18 weeks gestation admitted for URI and pyelonephritis # sepsis: - Secondary to pyelonephritis and/and URI. # Pyelonephritis: - Urine culture growing ESBL E Coli - Currently on ceftriaxone and azithromycin - Consulted ID for antibiotics recommendations. - May require PICC for intermodal dispatcher IV antibiotic treatment. # URI: - Bacterial versus viral: Productive cough. # intrauterine : vitamins # DVT GI prophylaxis: SCDs, no GI prophylaxis indicated Result Diagram: 12/28/18 0456 12/28/186 Subjective 24 Hr Interval Summary Free Text/Dictation No acute overnight events. Patient sleeping heavily on my exam today. Per family member in room, she slept poorly last night, continues to have cough and nausea. Exam/Review of Systems Exam Vitals Vital Signs Date Temp Pulse Resp B/P (MAP) Pulse Ox O2 O2 Flow FiO2 Time Delivery Rate 12/28/18 97.7 95 16 109/63 98 14:32 (78) 12/28/18 Room Air 07:31 Intake and Output 12/27/18 12/27/18 12/28/18 1515:00 23:00 07:00 IntakeIntake Total 480 ml 1140 ml 290 ml BalanceBalance 480 ml 1140 ml 290 ml Exam General: Well appearing woman sitting up in bed. HEENT: Atraumatic, normocephalic. The pupils are equal, round and reactive. Extraocular motor are intact Neck: Supple with full range of motion. No rigidity or meningismus Chest: Nontender Lungs: Clear to auscultation bilaterally no crackles rales or wheezing, cough Heart: Normal S1-S2, Regular rhythm and rate. No murmur, S3, or S4 Abdomen: Soft , nontender, nondistended , bowel sounds are present. Back: She does have R CVA tenderness. Extremities: Normal to inspection, no edema no cyanosis Results Results 24hrs Laboratory Tests Test 12/28/18 04:56 White Blood Count 10.7 # Red Blood Count 3.22 L Hemoglobin 9.2 L Hematocrit 27.6 L Mean Corpuscular Volume 85.7 Mean Corpuscular Hemoglobin 28.6 L Mean Corpuscular Hemoglobin Concent 33.3 Red Cell Distribution Width 14.2 Platelet Count 146 Mean Platelet Volume 11.6 H Immature Granulocytes % 0.700 H Neutrophils % 79.6 H Lymphocytes % 11.8 L Monocytes % 7.5 Eosinophils % 0.2 Basophils % 0.2 Nucleated Red Blood Cells % 0.0 Immature Granulocytes # 0.070 H Neutrophils # 8.5 H Lymphocytes # 1.3 Monocytes # 0.8 Eosinophils # 0.0 Basophils # 0.0 Nucleated Red Blood Cells # 0.0 Sodium Level 139 Potassium Level 3.6 Chloride Level 106 Carbon Dioxide Level 23 Anion Gap 10 Blood Urea Nitrogen 3 L Creatinine 0.52 Est Glomerular Filtrat Rate mL/min > 60 Glucose Level 107 Calcium Level 8.9 Total Bilirubin 0.2 Direct Bilirubin 0.00 Indirect Bilirubin 0.2 Aspartate Amino Transf (AST/SGOT) 16 Alanine Aminotransferase (ALT/SGPT) 20 Alkaline Phosphatase 131 H Total Protein 6.2 Albumin 3.0 L Globulin 3.20 Albumin/Globulin Ratio 0.93 Medications Medication Current Medications IV Flush (NS 3 ml) 3 ml PER PROTOCOL IV ; Start 12/27/18 at 00:30 Ondansetron HCl (Zofran Inj) 4 mg Q6H PRN IV NAUSEA/VOMITING Last administered on 12/28/18at 12:27; Admin Dose 4 MG; Start 12/27/18 at 00:30 Acetaminophen (Tylenol Tab) 650 mg Q6H PRN PO .PAIN 1-3 OR TEMP Last administered on 12/27/18 03:26; Admin Dose 650 MG; Start 12/27/18 at 00:30 Docusate Sodium (Colace) 100 mg Q12H PRN PO .CONSTIPATION; Start 12/27/18 at 00:30 Bisacodyl (Dulcolax) 5 mg DAILY PRN PO .CONSTIPATION Last administered on 12/27/18 03:26; Admin Dose 5 MG; Start 12/27/18 at 00:30 Ceftriaxone Sodium 50 ml @ 100 mls/hr Q24H IVPB Last administered on 12/27/18at 22:53; Admin Dose 100 MLS/HR; Start 12/27/18 at 23:00 Azithromycin (Zithromax) 250 mg DAILY PO Last administered on 12/28/18at 09:09; Admin Dose 250 MG; Start 12/28/18 at 09:00; Stop 01/01/19 at 08:59 Guaifenesin (Robitussin Liquid Cup) 100 mg Q4H PRN PO COUGH Last administered on 12/28/18at 12:27; Admin Dose 100 MG; Start 12/28/18 at 11:30 Prenat Multivit/ [place]/Iron/Folic Ac () 1 tab DAILY PO Last administered on 12/28/18at 12:27; Admin Dose 1 TAB; Start 12/29/18 at 09:00 JOHN BYNUM MD Dec 28, 2018 16:38
[2018-12-28 20:00] VITALS: BP 108/62; PULSE 99; RESP 18
[2018-12-28] MEDS: MEROPENEM 1 GM/50ML(PMX) 50 ML IVPB SCH (23:10)
--- NOTE | 2018-12-28 23:58 | CONS ---
Assessment/Plan Assessment/Plan Hospital Course (Demo Recall) - sepsis due to URI, UTI and pyelonephritis - URI, possible viral bronchitis - recurrent UTI and pyelonephritis due to ESBL+E. coli - UTI and pyelonephritis due to E. coli in 11/1018 - , 19th week of recommendations - pending results: blood cultures - ordered: influenza and other respiratory virus RT-PCR by nasopharyngeal swab, resp culture and renal KAY to r/o nephrolithiasis - for UTI and pyelonephritis due to ESBL+E. coli, I recommend meropenem (12/28/2018-). d/c ceftriaxone - for URI, Pt's on azithromycin per PMD (12/28/2018-) management d/w Pt, her and RN Consultation Date/Type/Reason Admit Date/Time Dec 27, 2018 at 00:20 Date of Consultation: Dec 28, 2018 Type of Consult ID Reason for Consultation R pyelonephritis and bronchitis Requesting Provider: JOHN BYNUM MD Date/Time of Note DATE: 12/28/18 TIME: 23:57 Hx of Present Illness This is a 23 yo female who is 19 week who presented at ER on 12/26/2018 c/o 3 day h/o diffuse myalgia, fever, R flank pain and productive cough. Pt was admitted here in mid-11/2018 for sepsis due to R pyelonephritis. her urine culture grew E. coli. Pt took ceftriaxone for a few days and then was sent home with a 5 day course of cephalexin. Pt confirmed that she took all the pills and was doing well. However 3 days prior to admission, Pt started to experience recurrent R flank pain, diffuse myalgia, chest congestion and cough productive of yellow sputum. Upon presentation she was in sepsis (temp 102, WBC level 16.8). She was started on IV ceftriaxone and azithromycin; her urine culture grew ESBL+E. coli. Dr. Bynum requested ID consultation on this Pt. Constitutional: febrile Eyes: no complaints ENT: congestion; No sore throat Respiratory: cough, sputum Cardiovascular: no complaints Gastrointestinal: no complaints Genitourinary: flank pain (R); No dysuria, No hematuria Musculoskeletal: other (diffuse myalgia) Skin: no complaints Neurologic: dizziness Past Medical History Home Meds Discontinued Scripts Cephalexin* (Cephalexin*) 500 Mg Capsule, 500 MG PO BID for 5 Days, #10 CAP Prov:ALEXANDRIA BOYD 12/07/18 Medications Current Medications IV Flush (NS 3 ml) 3 ml PER PROTOCOL IV ; Start 12/27/18 at 00:30 Ondansetron HCl (Zofran Inj) 4 mg Q6H PRN IV NAUSEA/VOMITING Last administered on 12/28/18 12:27; Admin Dose 4 MG; Start 12/27/18 at 00:30 Acetaminophen (Tylenol Tab) 650 mg Q6H PRN PO .PAIN 1-3 OR TEMP Last administered on 12/27/18 03:26; Admin Dose 650 MG; Start 12/27/18 at 00:30 Docusate Sodium (Colace) 100 mg Q12H PRN PO .CONSTIPATION; Start 12/27/18 at 00:30 Bisacodyl (Dulcolax) 5 mg DAILY PRN PO .CONSTIPATION Last administered on 12/27/18 03:26; Admin Dose 5 MG; Start 12/27/18 at 00:30 Azithromycin (Zithromax) 250 mg DAILY PO Last administered on 12/28/18 09:09; Admin Dose 250 MG; Start 12/28/18 at 09:00; Stop 01/01/19 at 08:59 Guaifenesin (Robitussin Liquid Cup) 100 mg Q4H PRN PO COUGH Last administered on 12/28/18 12:27; Admin Dose 100 MG; Start 12/28/18 at 11:30 Prenat Multivit/ [place]/Iron/Folic Ac () 1 tab DAILY PO Last administered on 12/28/18 12:27; Admin Dose 1 TAB; Start 12/29/18 at 09:00 Meropenem/Sodium Chloride 50 ml @ 100 mls/hr Q8 IVPB Last administered on 12/28/18 23:10; Admin Dose 100 MLS/HR; Start 12/28/18 at 23:00 Allergies: Coded Allergies: No Known Allergy (Unverified , 12/27/18) Past Surgical History Past Surgical Hx: no surgical history Social History Alcohol Use: rarely Smoking Status: Never smoker Drug Use: none Exam/Review of Systems Exam Vitals Vital Signs Date Temp Pulse Resp B/P (MAP) Pulse Ox O2 O2 Flow FiO2 Time Delivery Rate 12/28/18 97.7 99 18 108/62 99 Room Air 20:00 (77) Intake and Output 12/27/18 12/27/18 12/28/18 1515:00 23:00 07:00 IntakeIntake Total 480 ml 1140 ml 290 ml BalanceBalance 480 ml 1140 ml 290 ml Constitutional: alert, oriented, well developed Psych: no complaints, nl mood/affect Head: normocephalic, atraumatic Eyes: nl conjunctiva, nl lids, nl sclera ENMT: nl external ears & nose, nl lips & teeth, nl nasal mucosa & septum, mucosa pink and moist, other (no sinus tenderness b/l) Neck: supple, non-tender Respiratory: clear to auscultation, normal air movement Cardiovascular: regular rate and rhythm Gastrointestinal: soft, non-tender, other ( abdomen); No distended Genitourinary - Female: CVA tenderness (R) Musculoskeletal: nl extremities to inspection Extremities: normal pulses Neurological: SEAMLESS TUBE ROLLER II-XII intact, nl mental status, nl speech, nl strength Skin: nl turgor; No rash or lesions Results Result Diagram: 12/28/186 12/28/18 0456 Results 24hrs Laboratory Tests Test 12/28/18 04:56 White Blood Count 10.7 # Red Blood Count 3.22 L Hemoglobin 9.2 L Hematocrit 27.6 L Mean Corpuscular Volume 85.7 Mean Corpuscular Hemoglobin 28.6 L Mean Corpuscular Hemoglobin Concent 33.3 Red Cell Distribution Width 14.2 Platelet Count 146 Mean Platelet Volume 11.6 H Immature Granulocytes % 0.700 H Neutrophils % 79.6 H Lymphocytes % 11.8 L Monocytes % 7.5 Eosinophils % 0.2 Basophils % 0.2 Nucleated Red Blood Cells % 0.0 Immature Granulocytes # 0.070 H Neutrophils # 8.5 H Lymphocytes # 1.3 Monocytes # 0.8 Eosinophils # 0.0 Basophils # 0.0 Nucleated Red Blood Cells # 0.0 Sodium Level 139 Potassium Level 3.6 Chloride Level 106 Carbon Dioxide Level 23 Anion Gap 10 Blood Urea Nitrogen 3 L Creatinine 0.52 Est Glomerular Filtrat Rate mL/min > 60 Glucose Level 107 Calcium Level 8.9 Total Bilirubin 0.2 Direct Bilirubin 0.00 Indirect Bilirubin 0.2 Aspartate Amino Transf (AST/SGOT) 16 Alanine Aminotransferase (ALT/SGPT) 20 Alkaline Phosphatase 131 H Total Protein 6.2 Albumin 3.0 L Globulin 3.20 Albumin/Globulin Ratio 0.93 Medications Medication Current Medications IV Flush (NS 3 ml) 3 ml PER PROTOCOL IV ; Start 12/27/18 at 00:30 Ondansetron HCl (Zofran Inj) 4 mg Q6H PRN IV NAUSEA/VOMITING Last administered on 12/28/18 12:27; Admin Dose 4 MG; Start 12/27/18 at 00:30 Acetaminophen (Tylenol Tab) 650 mg Q6H PRN PO .PAIN 1-3 OR TEMP Last administered on 12/27/18 03:26; Admin Dose 650 MG; Start 12/27/18 at 00:30 Docusate Sodium (Colace) 100 mg Q12H PRN PO .CONSTIPATION; Start 12/27/18 at 00:30 Bisacodyl (Dulcolax) 5 mg DAILY PRN PO .CONSTIPATION Last administered on 12/27/18 03:26; Admin Dose 5 MG; Start 12/27/18 at 00:30 Azithromycin (Zithromax) 250 mg DAILY PO Last administered on 12/28/18 09:09; Admin Dose 250 MG; Start 12/28/18 at 09:00; Stop 01/01/19 at 08:59 Guaifenesin (Robitussin Liquid Cup) 100 mg Q4H PRN PO COUGH Last administered on 12/28/18 12:27; Admin Dose 100 MG; Start 12/28/18 at 11:30 Prenat Multivit/ [place]/Iron/Folic Ac () 1 tab DAILY PO Last administered on 12/28/18 12:27; Admin Dose 1 TAB; Start 12/29/18 at 09:00 Meropenem/Sodium Chloride 50 ml @ 100 mls/hr Q8 IVPB Last administered on 12/28/18 23:10; Admin Dose 100 MLS/HR; Start 12/28/18 at 23:00 CHELSEA GOMEZ M.D. Dec 28, 2018 23:58
[2018-12-29 02:00] VITALS: BP 92/54; PULSE 98; RESP 16
[2018-12-29] MEDS: MEROPENEM 1 GM/50ML(PMX) 50 ML IVPB SCH ×3 (05:57→22:07)
[2018-12-29 07:21] VITALS: BP 91/55; PULSE 92; RESP 16
[2018-12-29] MEDS: AZITHROMYCIN 250 MG TAB PO SCH (08:32)
[2018-12-29] MEDS: PRENATAL VITAMIN PO SCH (08:32)
--- NOTE | 2018-12-29 11:45 | CONS ---
[facility] HCIS Consult Follow-up Patient Name: Gwendolyn Tabares Unit Number: [id number] Date of : 1995 Patient Status: Admitted Inpatient Attending Doctor: John Pritchard MD Edit: CHELSEA GOMEZ M.D. on 12/30/18 @ 01:34 Cam: I discussed the management with DELFINO Walsh and agree with below. Assessment/Plan Assessment/Plan Hospital Course (Demo Recall) - sepsis due to URI, UTI and pyelonephritis - URI, possible viral bronchitis - recurrent UTI and pyelonephritis due to ESBL+E. coli - UTI and pyelonephritis due to E. coli in 11/1018 - , 19th week of Recommendations: - pending results: blood cultures, influenza and other respiratory virus RT-PCR by nasopharyngeal swab, resp culture and renal KAY to r/o nephrolithiasis - for UTI and pyelonephritis due to ESBL+E. coli, we recommend meropenem (12/28/2018-). - for URI, Pt's on azithromycin per PMD (12/28/2018-) management d/w patient and with RN Patsy. Thank you Consultation Date/Type/Reason Admit Date/Time Dec 27, 2018 at 00:20 Initial Consult Date 12/28/18 Type of Consult ID Requesting Provider: JOHN PRITCHARD MD Date/Time of Note DATE: 12/29/18 TIME: 11:39 24 HR Interval Summary Free Text/Dictation The patient c/o cough, denies phlegm production. Denies fevers, chills, night sweats, sob, cp, n/v/d, dysuria, pruritis, rash. States R flank pain is improved. When I entered the room the patient appeared upset, staring at the floor, poor eye contact with me. in room with her able to speak Persian but did not want to translate so I reviewed ROS in Romansh with the patient. D/w RN Patsy, the patient has remained afebrile with no acute issues noted. The Renal U/s is still pending to be done today. Exam/Review of Systems Exam Vitals Vital Signs Date Temp Pulse Resp B/P (MAP) Pulse Ox O2 O2 Flow FiO2 Time Delivery Rate 12/29/18 97.4 92 16 91/55 (67) 98 07:21 12/29/18 Room Air 02:00 Intake and Output 12/28/18 12/28/18 12/29/18 1414:59 22:59 06:59 IntakeIntake Total 560 ml 690 ml 50 ml BalanceBalance 560 ml 690 ml 50 ml Allergies Coded Allergies No Known Allergy (Unverified12/27/18) Constitutional: alert, oriented, well developed, other (sitting up in a chair brushing her wet hair.) Psych: other (Affect appeared strained/upset, poor eye contact, staring at the floor. ) Head: normocephalic, atraumatic Eyes: nl conjunctiva, nl lids, nl sclera ENMT: nl external ears & nose, nl nasal mucosa & septum, mucosa pink and moist, other (no sinus tenderness bilaterally) Neck: supple, non-tender Respiratory: clear to auscultation, normal air movement Cardiovascular: regular rate and rhythm, nl pulses Gastrointestinal: soft, non-tender, bowel sounds (normoactive ), other ( abdomen) Genitourinary - Female: CVA tenderness (R sided - reported as a 4/10 today which patient states is improved from yesterdays exam) Musculoskeletal: nl extremities to inspection Extremities: normal pulses Neurological: ELECTROMEDICAL EQUIPMENT REPAIRER II-XII intact, nl mental status, nl speech, nl strength Skin: nl turgor; No rash or lesions Results Result Diagram: 12/29/1843312/29/18433 Results 24hrs Laboratory Tests Test 12/29/18 04:34 White Blood Count 7.2 # Red Blood Count 3.33 L Hemoglobin 9.4 L Hematocrit 28.5 L Mean Corpuscular Volume 85.6 Mean Corpuscular Hemoglobin 28.2 L Mean Corpuscular Hemoglobin Concent 33.0 Red Cell Distribution Width 14.2 Platelet Count 184 # Mean Platelet Volume 11.5 H Immature Granulocytes % 0.400 Neutrophils % 71.1 Lymphocytes % 19.1 Monocytes % 7.9 Eosinophils % 1.2 Basophils % 0.3 Nucleated Red Blood Cells % 0.0 Immature Granulocytes # 0.030 Neutrophils # 5.1 Lymphocytes # 1.4 Monocytes # 0.6 Eosinophils # 0.1 Basophils # 0.0 Nucleated Red Blood Cells # 0.0 Sodium Level 139 Potassium Level 3.6 Chloride Level 103 Carbon Dioxide Level 26 Anion Gap 10 Blood Urea Nitrogen 4 L Creatinine 0.52 Est Glomerular Filtrat Rate mL/min > 60 Glucose Level 90 Calcium Level 9.2 Total Bilirubin 0.3 Direct Bilirubin 0.00 Indirect Bilirubin 0.3 Aspartate Amino Transf (AST/SGOT) 18 Alanine Aminotransferase (ALT/SGPT) 19 Alkaline Phosphatase 126 H Total Protein 6.1 Albumin 3.1 L Globulin 3.00 Albumin/Globulin Ratio 1.03 Imaging Imaging Obstetrics US 12/27/18 IMPRESSION: Single viable intrauterine gestation of approximately 19 weeks 1 day. The estimated date of delivery is a 11/10/2018 . No evidence of placental abruption Medications Medication Current Medications IV Flush (NS 3 ml) 3 ml PER PROTOCOL IV ; Start 12/27/18 at 00:30 Ondansetron HCl (Zofran Inj) 4 mg Q6H PRN IV NAUSEA/VOMITING Last administered on 12/28/18 12:27; Admin Dose 4 MG; Start 12/27/18 at 00:30 Acetaminophen (Tylenol Tab) 650 mg Q6H PRN PO .PAIN 1-3 OR TEMP Last administered on 12/27/18 03:26; Admin Dose 650 MG; Start 12/27/18 at 00:30 Docusate Sodium (Colace) 100 mg Q12H PRN PO .CONSTIPATION; Start 12/27/18 at 00:30 Bisacodyl (Dulcolax) 5 mg DAILY PRN PO .CONSTIPATION Last administered on 12/27/18 03:26; Admin Dose 5 MG; Start 12/27/18 at 00:30 Azithromycin (Zithromax) 250 mg DAILY PO Last administered on 12/29/18 08:32; Admin Dose 250 MG; Start 12/28/18 at 09:00; Stop 01/01/19 at 08:59 Guaifenesin (Robitussin Liquid Cup) 100 mg Q4H PRN PO COUGH Last administered on 3/9/19at 12:27; Admin Dose 100 MG; Start 12/28/18 at 11:30 Prenat Multivit/ [place]/Iron/Folic Ac () 1 tab DAILY PO Last administered on 12/29/18 08:32; Admin Dose 1 TAB; Start 12/29/18 at 09:00 Meropenem/Sodium Chloride 50 ml @ 100 mls/hr Q8 IVPB Last administered on 12/29/18at 05:57; Admin Dose 100 MLS/HR; Start 12/28/18 at 23:00 STEPHEN WALSH NP Dec 29, 2018 11:45
[2018-12-29 14:01] VITALS: BP 91/52; PULSE 87; RESP 16
--- NOTE | 2018-12-29 14:07 | PN ---
Date/Time of Note Date/Time of Note DATE: 12/29/18 TIME: 13:58 Assessment/Plan VTE Prophylaxis Risk score (from Ns)>0 risk: 0 SCD applied (from Ns): Yes Pharmacological prophylaxis: NA/contraindicated Pharm contraindication: low risk/ambulating Lines/Catheters IV Catheter Type (from Nrsg): Saline Lock Urinary Cath still in place: No Assessment/Plan Assessment/Plan 23 yo woman at 18 weeks gestation admitted for URI and pyelonephritis #URI - Symptoms have resolved. # Pyelonephritis: - Urine culture growing ESBL E Coli - Currently on meropenem (12/28-01/06) - Dr. Levy ID following. - Due to her recurrent infection soon after antibiotic treatment she should complete 10 days of meropenem to minimize risk of recurrence. - Ideally, patient may go home with home health to get elliot via PERIPHERAL IV. Consulted case management for this. - She may get a PICC, but is at risk of thrombosis due to . This should be discussed with her graves registration specialist (Neither she nor her know the doctor's name, but she's seen the same graves registration specialist several times at [facility] [phone]). - If she cannot get home health unfortunately may need to stay in hospital for antibiotic course. # intrauterine : vitamins # DVT GI prophylaxis: SCDs, no GI prophylaxis indicated Dispo: 10 days IV antibiotics as above. Result Diagram: 12/29/1843312/29/18433 Subjective 24 Hr Interval Summary Free Text/Dictation No acute overnight events. Discussed plan of care with patient and using DRAFTING INSTRUCTOR as pool cleaner. Patient remained tearful and withdrawn from the conversation. Did not participate in decisionmaking Spoke to patient alone with out of the room and assurance of confidentiality. She said nothing is wrong. She reports feeling safe returning home. Exam/Review of Systems Exam Vitals Vital Signs Date Temp Pulse Resp B/P (MAP) Pulse Ox O2 O2 Flow FiO2 Time Delivery Rate 12/29/18 97.4 92 16 91/55 (67) 98 07:21 12/29/18 Room Air 02:00 Intake and Output 12/28/18 12/28/18 12/29/18 1515:00 23:00 07:00 IntakeIntake Total 560 ml 690 ml 50 ml BalanceBalance 560 ml 690 ml 50 ml Exam General: Well developed woman sitting in chair, tearful and withdrawn. HEENT: Atraumatic, normocephalic. The pupils are equal, round and reactive. Extraocular motor are intact Neck: Supple with full range of motion. No rigidity or meningismus Chest: Nontender Lungs: Clear to auscultation bilaterally no crackles rales or wheezing, cough Heart: Normal S1-S2, Regular rhythm and rate. No murmur, S3, or S4 Abdomen: Soft , nontender, nondistended , bowel sounds are present. Back: She does have R CVA tenderness. Extremities: Normal to inspection, no edema no cyanosis Results Results 24hrs Laboratory Tests Test 12/29/18 04:34 White Blood Count 7.2 # Red Blood Count 3.33 L Hemoglobin 9.4 L Hematocrit 28.5 L Mean Corpuscular Volume 85.6 Mean Corpuscular Hemoglobin 28.2 L Mean Corpuscular Hemoglobin Concent 33.0 Red Cell Distribution Width 14.2 Platelet Count 184 # Mean Platelet Volume 11.5 H Immature Granulocytes % 0.400 Neutrophils % 71.1 Lymphocytes % 19.1 Monocytes % 7.9 Eosinophils % 1.2 Basophils % 0.3 Nucleated Red Blood Cells % 0.0 Immature Granulocytes # 0.030 Neutrophils # 5.1 Lymphocytes # 1.4 Monocytes # 0.6 Eosinophils # 0.1 Basophils # 0.0 Nucleated Red Blood Cells # 0.0 Sodium Level 139 Potassium Level 3.6 Chloride Level 103 Carbon Dioxide Level 26 Anion Gap 10 Blood Urea Nitrogen 4 L Creatinine 0.52 Est Glomerular Filtrat Rate mL/min > 60 Glucose Level 90 Calcium Level 9.2 Total Bilirubin 0.3 Direct Bilirubin 0.00 Indirect Bilirubin 0.3 Aspartate Amino Transf (AST/SGOT) 18 Alanine Aminotransferase (ALT/SGPT) 19 Alkaline Phosphatase 126 H Total Protein 6.1 Albumin 3.1 L Globulin 3.00 Albumin/Globulin Ratio 1.03 Medications Medication Current Medications IV Flush (NS 3 ml) 3 ml PER PROTOCOL IV ; Start 12/27/18 at 00:30 Ondansetron HCl (Zofran Inj) 4 mg Q6H PRN IV NAUSEA/VOMITING Last administered on 12/28/18at 12:27; Admin Dose 4 MG; Start 12/27/18 at 00:30 Acetaminophen (Tylenol Tab) 650 mg Q6H PRN PO .PAIN 1-3 OR TEMP Last administered on 12/27/18 03:26; Admin Dose 650 MG; Start 12/27/18 at 00:30 Docusate Sodium (Colace) 100 mg Q12H PRN PO .CONSTIPATION; Start 12/27/18 at 00:30 Bisacodyl (Dulcolax) 5 mg DAILY PRN PO .CONSTIPATION Last administered on 12/27/18 03:26; Admin Dose 5 MG; Start 12/27/18 at 00:30 Azithromycin (Zithromax) 250 mg DAILY PO Last administered on 12/29/18 08:32; Admin Dose 250 MG; Start 12/28/18 at 09:00; Stop 01/01/19 at 08:59 Guaifenesin (Robitussin Liquid Cup) 100 mg Q4H PRN PO COUGH Last administered on 12/28/18 12:27; Admin Dose 100 MG; Start 12/28/18 at 11:30 Prenat Multivit/ [place]/Iron/Folic Ac () 1 tab DAILY PO Last administered on 12/29/18 08:32; Admin Dose 1 TAB; Start 12/29/18 at 09:00 Meropenem/Sodium Chloride 50 ml @ 100 mls/hr Q8 IVPB Last administered on 12/29/18 05:57; Admin Dose 100 MLS/HR; Start 12/28/18 at 23:00 JOHN BYNUM MD Dec 29, 2018 14:07
[2018-12-29 20:00] VITALS: BP 108/52; PULSE 101; RESP 18
[2018-12-30 01:36] VITALS: BP 92/48; PULSE 86; RESP 18
[2018-12-30] MEDS: MEROPENEM 1 GM/50ML(PMX) 50 ML IVPB SCH ×2 (05:10→14:50)
[2018-12-30 07:49] VITALS: BP 89/54; PULSE 81; RESP 16
[2018-12-30] MEDS: AZITHROMYCIN 250 MG TAB PO SCH (09:16)
[2018-12-30] MEDS: PRENATAL VITAMIN PO SCH (09:17)
--- NOTE | 2018-12-30 12:05 | CONS ---
Assessment/Plan Assessment/Plan Hospital Course (Demo Recall) - sepsis due to URI, UTI and pyelonephritis - URI, possible viral bronchitis - recurrent UTI and pyelonephritis due to ESBL+E. coli - UTI and pyelonephritis due to E. coli in 11/1018 - 3 mm nonobstructing stone in the midpole of the L kidney per Renal U/s 12/29/18 - , 19th week of Recommendations: - pending results: blood cultures 12/26/18 (NGTD), influenza RT PCR and Respiratory Virus Panel nasopharyngeal swab - For UTI and pyelonephritis due to ESBL+E. coli, we recommend meropenem (12/28/2018-) x10 d course; may be discharged with once daily ertapenem to complete 10 day course. - For URI, Pt's on azithromycin per PMD (12/28/2018-) Management d/w patient, pharmacist Phi, Dr. Warner, and with Dr. Forrester. Thank you Consultation Date/Type/Reason Admit Date/Time Dec 27, 2018 at 00:20 Initial Consult Date 12/28/18 Type of Consult ID Requesting Provider: JOHN BYNUM MD Date/Time of Note DATE: 12/30/18 TIME: 12:02 24 HR Interval Summary Free Text/Dictation Patient still c/o cough, without phlegm production today. Denied all other ROS including R flank pain and dysuria. Remains afebrile. No acute issues were reported by nursing. Exam/Review of Systems Exam Vitals Vital Signs Date Temp Pulse Resp B/P (MAP) Pulse Ox O2 O2 Flow FiO2 Time Delivery Rate 12/30/18 97.8 81 16 89/54 (66) 97 07:49 12/29/18 Room Air 02:00 Intake and Output 12/29/18 12/29/18 12/30/18 1414:59 22:59 06:59 IntakeIntake Total 1260 ml 530 ml 50 ml BalanceBalance 1260 ml 530 ml 50 ml Allergies Coded Allergies No Known Allergy (Unverified12/27/18) Exam Constitutional: alert, oriented, well developed, other (laying in bed) Psych: no complaints, nl mood/affect (smiled today) Head: normocephalic, atraumatic Eyes: nl conjunctiva, nl lids, nl sclera ENMT: nl external ears & nose, nl nasal mucosa & septum, mucosa pink and moist, other (no sinus tenderness bilaterally) Neck: supple, non-tender Respiratory: clear to auscultation, normal air movement Cardiovascular: regular rate and rhythm, nl pulses Gastrointestinal: soft, non-tender, bowel sounds (normoactive ), other ( abdomen) Genitourinary - Female: other (no f/c) No CVA tenderness (denied bilaterally) Musculoskeletal: nl extremities to inspection Extremities: normal pulses Neurological: BUSINESS BANKER II-XII intact, nl mental status, nl speech, nl strength Skin: nl turgor; No rash or lesions Results Result Diagram: 12/30/18 0505 12/30/18 0505 Results 24hrs Laboratory Tests Test 12/30/18 05:05 White Blood Count 7.4 Red Blood Count 3.42 L Hemoglobin 9.6 L Hematocrit 29.4 L Mean Corpuscular Volume 86.0 Mean Corpuscular Hemoglobin 28.1 L Mean Corpuscular Hemoglobin Concent 32.7 Red Cell Distribution Width 14.3 Platelet Count 205 Mean Platelet Volume 11.1 H Immature Granulocytes % 0.500 H Neutrophils % 72.3 Lymphocytes % 19.7 Monocytes % 5.7 Eosinophils % 1.5 Basophils % 0.3 Nucleated Red Blood Cells % 0.0 Immature Granulocytes # 0.040 H Neutrophils # 5.4 Lymphocytes # 1.5 Monocytes # 0.4 Eosinophils # 0.1 Basophils # 0.0 Nucleated Red Blood Cells # 0.0 Sodium Level 141 Potassium Level 3.9 Chloride Level 105 Carbon Dioxide Level 25 Anion Gap 11 Blood Urea Nitrogen 4 L Creatinine 0.43 L Est Glomerular Filtrat Rate mL/min > 60 Glucose Level 81 Calcium Level 9.2 Total Bilirubin 0.3 Direct Bilirubin 0.00 Indirect Bilirubin 0.3 Aspartate Amino Transf (AST/SGOT) 23 Alanine Aminotransferase (ALT/SGPT) 22 Alkaline Phosphatase 133 H Total Protein 6.1 Albumin 3.1 L Globulin 3.00 Albumin/Globulin Ratio 1.03 Imaging Imaging Renal US 12/29/18 IMPRESSION: 1. No evidence of obstructive uropathy or renal mass. 3 mm nonobstructing left renal calculus. Medications Medication Current Medications IV Flush (NS 3 ml) 3 ml PER PROTOCOL IV ; Start 12/27/18 at 00:30 Ondansetron HCl (Zofran Inj) 4 mg Q6H PRN IV NAUSEA/VOMITING Last administered on 12/28/18 12:27; Admin Dose 4 MG; Start 12/27/18 at 00:30 Acetaminophen (Tylenol Tab) 650 mg Q6H PRN PO .PAIN 1-3 OR TEMP Last administered on 12/27/18 03:26; Admin Dose 650 MG; Start 12/27/18 at 00:30 Docusate Sodium (Colace) 100 mg Q12H PRN PO .CONSTIPATION; Start 12/27/18 at 00:30 Bisacodyl (Dulcolax) 5 mg DAILY PRN PO .CONSTIPATION Last administered on 12/27/18 03:26; Admin Dose 5 MG; Start 12/27/18 at 00:30 Azithromycin (Zithromax) 250 mg DAILY PO Last administered on 12/30/18 09:16; Admin Dose 250 MG; Start 12/28/18 at 09:00; Stop 01/01/19 at 08:59 Guaifenesin (Robitussin Liquid Cup) 100 mg Q4H PRN PO COUGH Last administered on 12/28/18 12:27; Admin Dose 100 MG; Start 12/28/18 at 11:30 Prenat Multivit/ Neffs/Iron/Folic Ac () 1 tab DAILY PO Last administered on 12/30/18 09:17; Admin Dose 1 TAB; Start 12/29/18 at 09:00 Meropenem/Sodium Chloride 50 ml @ 100 mls/hr Q8 IVPB Last administered on 12/30/18 05:10; Admin Dose 100 MLS/HR; Start 12/28/18 at 23:00 STEPHEN WALSH NP Dec 30, 2018 12:05
--- NOTE | 2018-12-30 14:14 | PN ---
Date/Time of Note Date/Time of Note DATE: 12/30/18 TIME: 14:10 Assessment/Plan VTE Prophylaxis Risk score (from Nsg)>0 risk: 1 SCD applied (from Nsg): Yes Pharmacological prophylaxis: other Lines/Catheters IV Catheter Type (from Nrsg): Saline Lock Urinary Cath still in place: No Assessment/Plan Hospital Course S: No acute events overnight. O: VS- see below PE; General: Well developed woman lying in bed HEENT: Atraumatic, normocephalic. The pupils are equal, round and reactive. Extraocular motor are intact Neck: Supple with full range of motion. No rigidity or meningismus Chest: Nontender Lungs: Clear to auscultation bilaterally no crackles rales or wheezing, cough Heart: Normal S1-S2, Regular rhythm and rate. No murmur, S3, or S4 Abdomen: Soft , nontender, nondistended , bowel sounds are present. Back: Mild positive R CVA tenderness. Extremities: Normal to inspection, no edema no cyanosis Assessment/Plan: 23 yo woman at 19 weeks gestation admitted for URI and pyelonephritis #URI- Symptoms have resolved. -Continue azithromycin until January 01, 2019. # Pyelonephritis:- Urine culture growing ESBL E Coli- Currently on meropenem (12/28-01/06)-infectious disease Dr. Levy ID following. - Due to her recurrent infection soon after antibiotic treatment she should complete 10 days of meropenem to minimize risk of recurrence. - Ideally, patient may go home with home health to get elliot via PERIPHERAL IV. Consulted case management for [id number] their orders on this (She may get a PICC, but is at risk of thrombosis due to . This should be discussed with her outpatient wound nurse - If she cannot get home health unfortunately may need to stay in hospital for antibiotic course. # intrauterine : -Monitor, continue vitamins # DVT GI prophylaxis: SCDs, no GI prophylaxis indicated Dispo: 10 days IV antibiotics as above. Result Diagram: 12/30/18 0505 12/30/18 0505 Results 24hrs Laboratory Tests Test 12/30/18 05:05 White Blood Count 7.4 Red Blood Count 3.42 L Hemoglobin 9.6 L Hematocrit 29.4 L Mean Corpuscular Volume 86.0 Mean Corpuscular Hemoglobin 28.1 L Mean Corpuscular Hemoglobin Concent 32.7 Red Cell Distribution Width 14.3 Platelet Count 205 Mean Platelet Volume 11.1 H Immature Granulocytes % 0.500 H Neutrophils % 72.3 Lymphocytes % 19.7 Monocytes % 5.7 Eosinophils % 1.5 Basophils % 0.3 Nucleated Red Blood Cells % 0.0 Immature Granulocytes # 0.040 H Neutrophils # 5.4 Lymphocytes # 1.5 Monocytes # 0.4 Eosinophils # 0.1 Basophils # 0.0 Nucleated Red Blood Cells # 0.0 Sodium Level 141 Potassium Level 3.9 Chloride Level 105 Carbon Dioxide Level 25 Anion Gap 11 Blood Urea Nitrogen 4 L Creatinine 0.43 L Est Glomerular Filtrat Rate mL/min > 60 Glucose Level 81 Calcium Level 9.2 Total Bilirubin 0.3 Direct Bilirubin 0.00 Indirect Bilirubin 0.3 Aspartate Amino Transf (AST/SGOT) 23 Alanine Aminotransferase (ALT/SGPT) 22 Alkaline Phosphatase 133 H Total Protein 6.1 Albumin 3.1 L Globulin 3.00 Albumin/Globulin Ratio 1.03 Exam/Review of Systems Exam Vitals Vital Signs Date Temp Pulse Resp B/P (MAP) Pulse Ox O2 O2 Flow FiO2 Time Delivery Rate 12/30/18 97.8 81 16 89/54 (66) 97 07:49 12/29/18 Room Air 02:00 Intake and Output 12/29/18 12/29/18 12/30/18 1414:59 22:59 06:59 IntakeIntake Total 1260 ml 530 ml 50 ml BalanceBalance 1260 ml 530 ml 50 ml Results Results 24hrs Laboratory Tests Test 12/30/18 05:05 White Blood Count 7.4 Red Blood Count 3.42 L Hemoglobin 9.6 L Hematocrit 29.4 L Mean Corpuscular Volume 86.0 Mean Corpuscular Hemoglobin 28.1 L Mean Corpuscular Hemoglobin Concent 32.7 Red Cell Distribution Width 14.3 Platelet Count 205 Mean Platelet Volume 11.1 H Immature Granulocytes % 0.500 H Neutrophils % 72.3 Lymphocytes % 19.7 Monocytes % 5.7 Eosinophils % 1.5 Basophils % 0.3 Nucleated Red Blood Cells % 0.0 Immature Granulocytes # 0.040 H Neutrophils # 5.4 Lymphocytes # 1.5 Monocytes # 0.4 Eosinophils # 0.1 Basophils # 0.0 Nucleated Red Blood Cells # 0.0 Sodium Level 141 Potassium Level 3.9 Chloride Level 105 Carbon Dioxide Level 25 Anion Gap 11 Blood Urea Nitrogen 4 L Creatinine 0.43 L Est Glomerular Filtrat Rate mL/min > 60 Glucose Level 81 Calcium Level 9.2 Total Bilirubin 0.3 Direct Bilirubin 0.00 Indirect Bilirubin 0.3 Aspartate Amino Transf (AST/SGOT) 23 Alanine Aminotransferase (ALT/SGPT) 22 Alkaline Phosphatase 133 H Total Protein 6.1 Albumin 3.1 L Globulin 3.00 Albumin/Globulin Ratio 1.03 Medications Medication Current Medications IV Flush (NS 3 ml) 3 ml PER PROTOCOL IV ; Start 12/27/18 at 00:30 Ondansetron HCl (Zofran Inj) 4 mg Q6H PRN IV NAUSEA/VOMITING Last administered on 12/28/18 12:27; Admin Dose 4 MG; Start 12/27/18 at 00:30 Acetaminophen (Tylenol Tab) 650 mg Q6H PRN PO .PAIN 1-3 OR TEMP Last administered on 12/27/18 03:26; Admin Dose 650 MG; Start 12/27/18 at 00:30 Docusate Sodium (Colace) 100 mg Q12H PRN PO .CONSTIPATION; Start 12/27/18 at 00:30 Bisacodyl (Dulcolax) 5 mg DAILY PRN PO .CONSTIPATION Last administered on 12/27/18 03:26; Admin Dose 5 MG; Start 12/27/18 at 00:30 Azithromycin (Zithromax) 250 mg DAILY PO Last administered on 12/30/18 09:16; Admin Dose 250 MG; Start 12/28/18 at 09:00; Stop 01/01/19 at 08:59 Guaifenesin (Robitussin Liquid Cup) 100 mg Q4H PRN PO COUGH Last administered on 12/28/18 12:27; Admin Dose 100 MG; Start 12/28/18 at 11:30 Prenat Multivit/ Complex Care Nurse Practitioner/Iron/Folic Ac () 1 tab DAILY PO Last administered on 12/30/18 09:17; Admin Dose 1 TAB; Start 12/29/18 at 09:00 Meropenem/Sodium Chloride 50 ml @ 100 mls/hr Q8 IVPB Last administered on 12/30/18 05:10; Admin Dose 100 MLS/HR; Start 12/28/18 at 23:00 ALPESH GARCIA Dec 30, 2018 14:14
[2018-12-30 14:42] VITALS: BP 101/56; PULSE 88; RESP 16
--- NOTE | 2018-12-30 15:26 | PDOCDIS ---
Discharge Instructions CONDITION [id number] Patient Condition: [id number] Stable HOME CARE INSTRUCTIONS: [id number] Diet Instructions: [id number] Low Fat /Cholesterol ACTIVITY: Klbsg2Ml Activity Restrictions: Bgelu6s Slowly Increase Activity Rest between Activity Avoid heavy lifting FOLLOW UP/APPOINTMENTS Follow-up Plan Please take your medication as prescribed, see her doctor in the clinic in less than 1 week. ALPESH GARCIA Dec 30, 2018 15:26
[2018-12-30] MEDS ORDERED: AZIT250T13 PO (15:28)
[2018-12-30] MEDS ORDERED: ERTA1VIA3 IV* (15:28)
[2018-12-30] MEDS ORDERED: PREN1TAB71 PO (15:28)
--- NOTE | 2018-12-30 15:33 | DS ---
Date/Time of Note Date/Time of Note DATE: 12/30/18 TIME: 15:29 Discharge Summary Admission/Discharge Info Admit Date/Time Dec 27, 2018 at 00:20 Discharge Date/Time Discharge Diagnosis #URI- Symptoms have resolved. # Pyelonephritis:- Urine culture growing ESBL E Coli - Currently on ertapenem antibiotic (12/28-01/06) - Dr. Levy ID following. # intrauterine : vitamins Patient Condition: Stable Hx of Present Illness 23-year-old female , history of pyelonephritis presents to the ED complaining of a 4-day history of fevers and body aches. Nonspecific URI sympt oms including cough and sore throat but also complaining of dysuria and right flank pain. No abdominal pain, nausea or vomiting. No vaginal discharge or bleeding. No headache or neck pain. No skin rash. No ill contacts or recent travel. Upon review of her previous admission on 12/05 she had a obstetric ultrasound done did show at approximately 16 weeks. She does have regular follow-up at a clinic for her ob. Hospital Course Patient was admitted, found with ESBL E. coli urinary tract infection. She was treated with fluids, antipyretics, and antibiotics A for . She was found also with a upper respiratory infection that improved with azithromycin antibiotic treatment. Over the course of her hospital stay her white blood cell count was normal the last few days of admission, her fever subsided. She was able to ambulate, tolerate p.o. diet. She continued on vitamins. After case management has set up the home IV antibiotic use, which was recommended by infectious disease team was on the patient, patient will be discharged home today with a more days of ertapenem IV antibiotic treatment needs in an improved condition. See below for full list of discharge medications. Home Meds Active Scripts Ertapenem Sodium (Invanz) 1 Gm Vial, 1 GM IV* DAILY for 8 Days, VIAL Prov:ALPESH GARCIA S. 12/30/18 Azithromycin* (Azithromycin*) 250 Mg Tablet, 250 MG PO DAILY, #3 TAB Prov:ALPESH GARCIA S. 12/30/18 Vit No.130/Iron/FA ( Tablet) 1 Each Tablet, 1 TAB PO DAILY, #30 TAB Prov:ALPESH GARCIA S. 12/30/18 Discontinued Scripts Cephalexin* (Cephalexin*) 500 Mg Capsule, 500 MG PO BID for 5 Days, #10 CAP Prov:ALEXANDRIA BOYD 12/07/18 Follow-up Plan Please take your medication as prescribed, see her doctor in the clinic in less than 1 week. Primary Care Provider Care Physician No Primary Time spent on discharge: > 30 minutes Pending Labs Laboratory Tests Test 12/30/18 05:05 White Blood Count 7.4 10^3/ul (4.8-10.8) Red Blood Count 3.42 10^6/ul (4.20-5.40) Hemoglobin 9.6 g/dl (12.0-16.0) Hematocrit 29.4 % (37.0-47.0) Mean Corpuscular Volume 86.0 fl (82.0-101.0) Mean Corpuscular Hemoglobin 28.1 pg (29.0-33.0) Mean Corpuscular Hemoglobin Concent 32.7 g/dl (32.0-37.0) Red Cell Distribution Width 14.3 % (11.5-14.5) Platelet Count 205 10^3/UL (140-415) Mean Platelet Volume 11.1 fl (7.4-10.4) Immature Granulocytes % 0.500 % (0.001-0.429) Neutrophils % 72.3 % (39.0-77.0) Lymphocytes % 19.7 % (15.0-51.0) Monocytes % 5.7 % (0.0-11.0) Eosinophils % 1.5 % (0.0-7.0) Basophils % 0.3 % (0.0-2.0) Nucleated Red Blood Cells % 0.0 /100WBC (0.0-0.0) Immature Granulocytes # 0.040 10^3/ul (0.0-0.031) Neutrophils # 5.4 10^3/ul (1.6-7.5) Lymphocytes # 1.5 10^3/ul (0.8-2.9) Monocytes # 0.4 10^3/ul (0.3-0.9) Eosinophils # 0.1 10^3/ul (0.0-0.5) Basophils # 0.0 10^3/ul (0.0-0.1) Nucleated Red Blood Cells # 0.0 10^3/ul (0.0-0.0) Sodium Level 141 mmol/L (135-144) Potassium Level 3.9 mmol/L (3.5-5.1) Chloride Level 105 mmol/L (97-110) Carbon Dioxide Level 25 mmol/L (21-31) Anion Gap 11 (5-13) Blood Urea Nitrogen 4 mg/dl (7-20) Creatinine 0.43 mg/dl (0.44-1.00) Est Glomerular Filtrat Rate mL/min > 60 mL/min (>60) Glucose Level 81 mg/dl (70-220) Calcium Level 9.2 mg/dl (8.4-10.2) Total Bilirubin 0.3 mg/dl (0.2-1.3) Direct Bilirubin 0.00 mg/dl (0.00-0.20) Indirect Bilirubin 0.3 mg/dl (0-1.1) Aspartate Amino Transf (AST/SGOT) 23 IU/L (15-46) Alanine Aminotransferase (ALT/SGPT) 22 IU/L (13-69) Alkaline Phosphatase 133 IU/L (42-121) Total Protein 6.1 g/dl (6.1-8.1) Albumin 3.1 g/dl (3.3-4.9) Globulin 3.00 g/dl (1.3-3.2) Albumin/Globulin Ratio 1.03 ALPESH GARCIA Dec 30, 2018 15:33
== END 2018-12-30 18:40 | disposition home health service (06) | DRG 831 ==
LOC: FTE 20:53 → 2NE 12-27 00:20
PROVIDERS: ADMIT Family Medicine; ATTEND Hospitalist
DX: O98.812 Other maternal infectious and parasitic diseases complicating pregnancy, second trimester (principal); A41.9 Sepsis, unspecified organism; N10 Acute pyelonephritis; Z3A.19 19 weeks gestation of pregnancy; O99.512 Diseases of the respiratory system complicating pregnancy, second trimester; J06.9 Acute upper respiratory infection, unspecified; B96.20 Unspecified Escherichia coli [E. coli] as the cause of diseases classified elsewhere; Z16.12 Extended spectrum beta lactamase (ESBL) resistance
CPT/HCPCS: 36415; 76775; 76805; 80053; 81001; 81025; 83605; 85025; 87040; 87070; 87081; 87086; 87275; 87276; 87279; 87280; 87400; 96365; J0696; J2185; J2405; J7030

== ENCOUNTER 2019-05-15 08:43 | Inpatient (IN) | payer OTHER ==
[~2019-05-15] VITALS: Ht 152.4 cm; Wt 80.4 kg
[~2019-05-15 08:43] MED LIST changes: -CEPH500C PO; +PREN1TAB71 PO
[2019-05-15 08:52] VITALS: BP 135/93; PULSE 79; Ht 152.4 cm; Wt 80.4 kg
[2019-05-15] MEDS ORDERED: LACTATED RINGER'S 1,000 ML IV SCH (09:16)
[2019-05-15] MEDS ORDERED: OXYCODONE/ASPIRIN (4.88/325) TAB PO PRN ×3 (09:30→14:00)
[2019-05-15] MEDS ORDERED: OXYTOCIN 30 UNITS/LR 500 ML IV PRN ×2 (09:30→14:00)
[2019-05-15] MEDS ORDERED: MISOPROSTOL 200 MCG TAB PR PRN ×2 (09:30→14:00)
[2019-05-15] MEDS ORDERED: BUTORPHANOL 2 MG INJ IV PRN ×2 (09:30)
[2019-05-15] MEDS ORDERED: OXYTOCIN 30 UNITS/LR 500 ML IV SCH ×3 (09:30→13:42)
[2019-05-15] MEDS ORDERED: LIDOCAINE 1% (MPF) 30 ML INJ INJ PRN (09:30)
[2019-05-15] MEDS ORDERED: IBUPROFEN 600 MG TAB PO PRN (09:30)
[2019-05-15] MEDS ORDERED: METHYLERGONOVINE 0.2 MG INJ IM PRN ×2 (09:30→14:00)
[2019-05-15] MEDS ORDERED: CARBOPROST 250 MCG INJ IM PRN ×2 (09:30→14:00)
[2019-05-15] MEDS ORDERED: AMPICILLIN 2 GM/NS (PMX) 100 ML IV ONE (09:30)
--- NOTE | 2019-05-15 09:43 | TRIAGE ---
OB Triage Datetime Report Generated by CPN: 05/15/2019 09:42 Datetime: 05/15/2019 09:04 Vaginal Exam Dilatation (cms): 4.0 Effacement (%): 100 Station: -2 Exam By: AO Cervix, Position: Midposition Presentation 'A': Cephalic Datetime: 05/15/2019 08:57 Stage of : OB Triage Assessment Type: Triage Maternal Assessment Level of Consciousness: Keenly Alert, Responsive DTR's/Clonus: DTRs 2+; No Clonus Headache: Denies Blurred Vision: No Respiratory Effort: Unlabored; Regular Rhythm; Equal Expansion Breath Sounds, Left: Clear and Equal Breath Sounds, Right: Clear and Equal Nausea/Vomiting: Denies RUQ Epigastric Pain: Denies Lower Extremities Edema: None Degree: None Upper Extremities Edema: None Degree: None Facial Edema: None Temperature Route: Oral Fall Risk Assessment History of Falling: (0) No Secondary Diagnosis: (0) No Ambulatory Aid: (0) Bedrest/Nurse Assist IV Therapy: (0) No Gait: (0) Normal/Bedrest/Immobile Mental Status: (0) Oriented to Own Ability Fall Score: 0 Fall Risk Score Definition: No Risk: No action required Labor Evaluation Frequency: 1-2 Monitor Mode: External Duration (sec)2399: 40-60 Quality: Moderate Pattern: Normal: <= 5 Contractions in 10 Minutes Resting Tone [place]: Relaxed Heart Rate FHR Baseline Rate: 125 Monitor Mode: External US FHR Baseline Changes: No Baseline Change Variability: Moderate 6-25 bpm Accelerations: 15X15 Decelerations: None Category: Category I Pain Assessment Pain Scale: 9 Pain Presence: Intermittent Pain Type: Contraction Pain Location: Abdomen Pain Relief Measures: Comfort Measures Datetime: 05/15/2019 08:56 Time of Arrival: 05/15/2019 08:35 EGA: 39.3 Arrived By: Ambulatory Arrived From: Home Chief Complaint: UCs, leaking fluid Movement: Present Contractions: Occasional Time Contractions Began: 05/15/2019 07:00 Rupture of Membranes: Unsure Vaginal Bleeding: None Vaginal Discharge: Denies Recent Sexual Intercouse: Denies Abdominal Trauma: Not Applicable Patient Complaints: Contractions Time Provider Notified: 05/15/2019 09:08 Provider Notified: Dr Negrete Initial Plan: NST Datetime: 05/15/2019 08:47 EGA: 38.6 Datetime: 05/11/2019 08:34 EGA: 38.6 Datetime: 05/11/2019 08:27 Fall Score: 0 Fall Risk Score Definition: No Risk: No action required Datetime: 05/09/2019 20:06 EGA: 38.4 Datetime: 05/09/2019 20:03 Fall Score: 0 Fall Risk Score Definition: No Risk: No action required Datetime: 05/08/2019 14:55 Fall Score: 0 Fall Risk Score Definition: No Risk: No action required Datetime: 05/08/2019 14:53 EGA: 38.3
--- NOTE | 2019-05-15 13:28 | PREOPHP ---
DATE OF ADMISSION: 05/15/2019 HISTORY OF PRESENT ILLNESS: Ms. Gwendolyn Tabares is a 24-year-old 1, para 0, EDC 05/19/20 19, intrauterine at term, admitted today in labor. She reports of contractions since early this morning. She denies any nausea, vomiting, shortness of breath, or visual changes. [facility]. MEDICAL HISTORY: None. MEDICATIONS: vitamins. PAST SURGICAL HISTORY: None. OBSTETRIC GYNECOLOGIC HISTORY: Primigravid, 14, regular 3 to 4 days. Denies any sexually transmitt ed infections. Sexually active with 1 partner. SOCIAL HISTORY: Denies any smoking, drugs or alcohol. FAMILY HISTORY: None. REVIEW OF SYSTEMS: All within normal except history of present illness. PHYSICAL EXAMINATION: HEENT: Within normal. LUNGS: CTA bilateral. CARDIOVASCULAR: S1, S2, regular rhythm. ABDOMEN: Gravid, nontender. Negative CVA bilateral. EXTREMITIES: Negative calf tenderness. PELVIC: Vaginal exam 100% effaced, -1 station. heart tracing category 1. [place]: Regular cont ractions. ASSESSMENT: Intrauterine at term, in active labor. PLAN: Anticipated vaginal delivery. Dictated By: FORREST BUSTILLO/RIVKA Conf#: [id number] DID#: [id number]
[2019-05-15] MEDS ORDERED: AMPICILLIN 1 GM/NS (PMX) 50 ML IV SCH (13:30)
--- NOTE | 2019-05-15 13:42 | LDN ---
Date/Time of Note Date/Time of Note DATE: 05/15/19 TIME: 13:40 Delivery Summary Weeks of Gestation 39 Placenta Delivered: Spontaneously Meconium: none Episiotomy: No Laceration repair: 1st degree vaginal laceration repair with 3-0 chromic Anesthesia type: Epidural Estimated blood loss: 150 Sponge & Needle done & correct: Yes All needle counts correct: Yes Any foreign bodies felt in the: No Infant Delivery Information Sex Infant Sex: female Apgars 1 Minute: 4 5 Minute: 9 10 Minute: 9 Suctioning Nose & mouth suctioned at douglas: No Delee suction performed: No Umbilical Cord Cord presentations: nuchal cord Nuchal cord present X: 1 Cord Blood was obtained: Yes FORREST KUMAR MD May 15, 2019 13:42
[2019-05-15] MEDS ORDERED: ONDANSETRON 4 MG INJ IV PRN (14:00)
[2019-05-15] MEDS ORDERED: LANOLIN HPA 1 PKT TOP PRN (14:00)
[2019-05-15] MEDS ORDERED: ACETAMINOPHEN 325 MG TAB PO PRN (14:00)
[2019-05-15] MEDS ORDERED: NACL 0.9% 3 ML SYG IV SCH (14:00)
[2019-05-15 15:00] VITALS: BP 134/78; PULSE 71; RESP 20
[2019-05-15] MEDS: WITCH HAZEL/GLYCERIN PAD PR PRN (15:48)
[2019-05-15] MEDS: BENZOCAINE 20% 56 ML SPRAY TOP PRN (15:48)
[2019-05-15 16:00] VITALS: BP 124/76; PULSE 70; RESP 18
[2019-05-15] MEDS: IBUPROFEN 600 MG TAB PO SCH ×2 (18:00→23:40)
[2019-05-15 20:00] VITALS: BP 131/80; PULSE 67; RESP 18
[2019-05-15] MEDS: SENNA/DOCUSATE NA (8.6MG/50MG) TAB PO SCH (21:02)
[2019-05-16] VITALS: BP 118/69; PULSE 66; RESP 18
[2019-05-16 04:08] VITALS: BP 121/65; PULSE 65; RESP 18
[2019-05-16] MEDS: IBUPROFEN 600 MG TAB PO SCH ×3 (05:52→17:43)
[2019-05-16 08:00] VITALS: BP 113/73; PULSE 60; RESP 18
[2019-05-16] MEDS: SENNA/DOCUSATE NA (8.6MG/50MG) TAB PO SCH ×2 (08:33→21:00)
[2019-05-16 16:17] VITALS: BP 122/62; PULSE 72; RESP 18
[2019-05-16 20:00] VITALS: BP 119/75; PULSE 72; RESP 19
--- NOTE | 2019-05-16 20:59 | PD.PPDC ---
ESCROW AGENT Discharge Instruction Condition [id number] Patient Condition: Kwzzp1f Fair Diet Mxbpn8Pm Diet: Ckpip8j Resume Regular Diet Activity/Restrictions [id number] Activity: Nlnve1g Normal Activity May Shower [id number] Restrictions: Koznj4r No Exercising No Lifting No Driving No Sexual Activity Nothing in the Vagina No [place] No Tampons, douche Follow-up Follow-up with Physician: 3, Week/Weeks Return to clinic for [id number] DISH UP PERSON Instructions: Awree1s Fever greater than 101 Chills Worsening abdominal pain Excessive Vaginal Bleeding More than 2 pads per hour Unable to tolerate diet [id number] OB Instructions: Ioqck7e Breast Tenderness Depression Blurried Vision Headache [id number] Surgical Instructions: Ueljf1o Incisional Drainage Incisional Redness FORREST KUMAR MD May 16, 2019 20:59
--- NOTE | 2019-05-16 21:02 | DS ---
Date/Time of Note Date/Time of Note DATE: 05/16/19 TIME: 21:01 Obstetrical Discharge Record Final Diagnosis Final Diagnosis: Term delivered Vaginal Delivery Obstetrical Delivery: Spontaneous, Laceration, Repaired Condition on Discharge Physical Assessment Last Vitals: stable afebrile Voiding: Yes Bowel Movement: Yes Breast: Soft, non-tender, Filling Fundus: Firm Abdomen and Incision: soft nt Calf Tenderness: No Patient Condition: Fair FORREST KUMAR MD May 16, 2019 21:02
[2019-05-17] MEDS: IBUPROFEN 600 MG TAB PO SCH ×3 (00:12→11:40)
[2019-05-17 04:00] VITALS: BP 115/68; PULSE 60; RESP 18
[2019-05-17 08:00] VITALS: BP 122/79; PULSE 73; RESP 16
[2019-05-17] MEDS: SENNA/DOCUSATE NA (8.6MG/50MG) TAB PO SCH (09:27)
[2019-05-17] MEDS: BENZOCAINE 20% 56 ML SPRAY TOP PRN (09:27)
[2019-05-17] MEDS: WITCH HAZEL/GLYCERIN PAD PR PRN (09:27)
--- NOTE | 2019-05-18 17:51 | DELSUM ---
Delivery Summary A-C Datetime Report Generated by CPN: 05/18/2019 17:[address] [employer]: Donya Pete MATERNAL INFORMATION Delivery Anesthesia: None Medications in Delivery: pitocin Delivery QBL (ml): 150 Placenta Cultured: No Maternal Complications: None Other Maternal Complications: IN LABOR LABOR SUMMARY EDC: 05/19/2019 00:00 No. Babies in Womb: 1 Attempted: No Labor Anesthesia: None LABOR INFORMATION Reason for Induction: Not Applicable Onset of Labor: 05/15/2019 08:00 Complete Dilatation: 05/15/2019 12:17 Group B Beta Strep: Positive Antibiotics # of Doses: 1 Antibiotics Time of Last Dose: 05/15/2019 09:48 Steroids Given: None Reason Steroids Not Administered: Not Applicable MEMBRANES Membranes Rupture Method: Spontaneous Rupture of Membranes: 05/15/2019 09:37 Length of Rupture (hr): 3.45 Amniotic Fluid Color: Clear Amniotic Fluid Amount: Moderate Amniotic Fluid Odor: Normal STAGES OF LABOR Stage 1 hr: 4 Stage 1 min: 17 Stage 2 hr: 0 Stage 2 min: 47 Stage 3 hr: 0 Stage 3 min: 1 Total Time in Labor hr: 5 Total Time in Labor min: 5 VAGINAL DELIVERY Episiotomy: None Laceration Extension: First Degree Laceration Type: Perineal Laceration Repair: Yes Initial Vag Sponge Count: 10 Final Vag Sponge Count: 10 Initial Vag Sharps Count: 2 Final Vag Sharps Count: 2 Sponge Count Correct: Yes Sharps Count Correct: Yes BABY A INFORMATION Delivery Date/Time: 05/15/2019 13:04 Method of Delivery: Vaginal Born in Route : No : N/A Forceps: N/A Vacuum Extraction: N/A Shoulder Dystocia : No SHOULDER DYSTOCIA BABY A Infant Delivery Date/Time: 05/15/2019 13:04 PRESENTATION/POSITION BABY A Presentation: Cephalic Cephalic Presentation: Vertex Vertex Position: Left Occipital Anterior Breech Presentation: N/A PLACENTA INFORMATION BABY A Placenta Delivery Time : 05/15/2019 13:05 Placenta Method of Delivery: Spontaneous Placenta Status: Delivered SCORES BABY A Heart Rate 1 min: >100 bpm Resp Effort 1 min: Absent Reflex Irritability 1 min: Grimace Muscle Tone 1 min: Some Flexion of Extrem Color 1 min: Blue/Pale Resuscitation Effort 1 min: Tactile Stimulation SCORE 1 MIN: 4 Heart Rate 5 min: >100 bpm Resp Effort 5 min: Good Cry Reflex Irritability 5 min: Cough/Sneeze/Pulls Away Muscle Tone 5 min: Active Motion Color 5 min: Body Palmer, Extremit Blue SCORE 5 MIN: 9 INFANT INFORMATION BABY A Gestational Age at Delivery: 39.3 Gestational Status: Full Term- 39- 40.6 Weeks Infant Outcome : Liveborn, with signs of life Infant Condition : Stable Infant Sex: Female IDENTIFICATION/MEDS BABY A ID Band Number: [id number] ID Band Location: Right Leg; Left Arm Sensor Applied: Yes Sensor Number: [id number] Sensor Location : Cord Clamp Vitamin K Given : Not Given Erythromycin Given: Not Given WEIGHT/LENGTH BABY A Infant Birthweight (gm): 2935 Infant Weight (lb): 6 Infant Weight (oz): 8 Length (in): 19.00 Length (cm): 48.26 CORD INFORMATION BABY A No. Cord Vessels: 3 Nuchal Cord : Around Neck x1, Tight Cord Blood Taken: Yes Infant Suction: Mouth; Nose ASSESSMENT BABY A Complications: None Physical Findings at Delivery: Within Normal Limits Respirations: Appears Normal Para Operator/ALS Called : Yes Care By: RT Transferred To: Remains with Mother
== END 2019-05-17 15:30 | disposition home or self-care (01) | DRG 807 ==
LOC: OBT 08:43 → L-D 08:44 → OBT 09:44 → PP1 15:07
PROVIDERS: ADMIT Obstetrics & Gynecology; ATTEND Obstetrics & Gynecology
PROC: 10E0XZZ Delivery of Products of Conception, External Approach (ICD-10-PCS; principal; 2019-05-15)
PROC: 0HQ9XZZ Repair Perineum Skin, External Approach (ICD-10-PCS; 2019-05-15)
DX: O69.81X0 Labor and delivery complicated by cord around neck, without compression, not applicable or unspecified (principal); Z37.0 Single live birth; O70.0 First degree perineal laceration during delivery; Z3A.39 39 weeks gestation of pregnancy
CPT/HCPCS: 36415; 36600; 76815; 80053; 80307; 81001; 82803; 84560; 85025; 85610; 85730; 86592; 86850; 86900; 86901; 99464; G0463; J0290; J0595; J2590; J7120